=== PATIENT | male | born 1955 | race Caucasian/White ===

== ENCOUNTER 2018-09-03 02:15 | Inpatient (IN) ==
[2018-09-03] MEDS ORDERED: cefTRIAXone SODIUM 2,000 MG in DEXTROSE 5% 50 ML IV STA (02:52)
[2018-09-03] MEDS ORDERED: ONDANSETRON INJ 2 MG/ML 2 ML VIAL IV STA (02:52)
[2018-09-03] MEDS ORDERED: SODIUM CHLORIDE 0.9% 1000ML 1,000 ML IV ONE ×2 (02:52→04:21)
--- NOTE | 2018-09-03 03:04 | Emergency Department Note ---
ED Provider Note Name: Jayant Carvajal Age: 63M Arrives Via: POV Informant: Pt, CC: Blood stream infection HPI: 63 male arrives for evaluation of positive blood cultures. Patient seen earlier yesterday and diagnosed with UTI/Prostatitis, started on abx and discharged home. Notes feeling well initially on getting home but as day went on symptoms worsening. Took evening abx dosage. Admits minimal oral intake today. States urinary burning/frequency, fatigue, weakness, lack of appetite, nausea, and lightheaded. Worse with standing/exertion. Better with rest and relaxing. He has had no headache, neck pain, sob, cp, back pain, flank pain, leg swelling, rashes, syncope, vision changes nor other symptoms. Denies significant history of infections. No family history of infection issues he remembers. Previous with removal of appendix, tonsils and gallbladder. Denies current abdominal pain. Other than abx no other medications prior to arrival. This evening he was notified of positive blood cultures and advised to return to ED for further evaluation. ROS: See above HPI for pertinent positives & negatives. A total of 10 systems reviewed and were otherwise negative. Past Medical History: HTN, GERD, PE, Depression Past Surgical History: Cholecystecomy, Appendectomy, Tonsillectomy Family History: Non-Contributory Social History: Lives with , non-smoker, retired, farms Home Medications: Lisinopril, Zoloft, Lansoprazole Allergies None Physical: Vitals: BP 131/65, P 80, R 23, T 36.8, O2 93% RA Exam: GENERAL: Patient is tired appearing and in mild distress. EYES: No scleral icterus, unremarkable pupils. ENT: Mucous membranes moist, no nasal congestion. NECK: No masses appreciated, no meningismus, trachea is midline. RESPIRATORY: No dyspnea. Clear to auscultation and equal bilaterally. No wheeze, no rhonchi. CARDIOVASCULAR: Regular rate and rhythm. No murmurs, rubs, gallops appreciated. GASTROINTESTINAL: Abdomen soft, non-tender, no peritonitis. Bowel sounds positive. No masses appreciated. BACK: No midline tenderness, no CVA tenderness EXTREMITIES: Normal motion all extremities, no cyanosis, no edema. NEUROLOGIC: Alert and oriented, no acute motor or sensory deficits, no focal weakness, cranial nerves grossly intact. SKIN: No rash, no jaundice, no diaphoresis. ED Course: Prior Medical Record, Triage/Nursing Notes, Medications, Allergies reviewed by Me Vital Signs: reviewed and remarkable for wnl Labs: Reviewed and remarkable for elevated WBC, elevated Lactate, elevated bili, elevated INR Interventions: Saline Lock, NSS bolus 2L IV, Rocephin 2gm IV Imaging: X ray results are stated below per my interpretation: Chest: 1 view: No infiltrate, no effusion, normal cardiac border. Circular mass/granuloma left upper chest. No previous for comparison. EKG: Per My Interpretation: Indication Sepsis: NSR 94 bpm qtc 442, No ectopy no ischemia. Similar to EKG Oct 2017 Consults: Dr Marylou Cruz Hospitalist will bring in for further management Reassessments: Feeling much improved on repeat evaluation. Blood pressure: Normal. No Referral necessary Disposition: Hospitalization Differentials: Sepsis, Prostatitis, UTI, Pyelonephritis, Bacteremia, Endocarditis, PNA, Electrolyte imbalance amongst other pathologies. Medical Decision Making: Pleasant 63 yr old male arrives for evaluation of positive blood cultures done earlier in the day. UTI vs Prostatitis by work-up earlier, though with normal UA here I suspect that primary issue is prostate infection. Already with Cipro on board this evening, thus given another dose IV Rocephin 2 gm. With elevated Lactate I opted to give 2 boluses IV fluids. Not in septic shock. He has elevated WBC and Lactate indicating sepsis however. With concern acute prostatitis and already with sepsis will avoid rectal exam at this time. LFTs are a bit bumped including INR. Suspect this is secondary to the Fatty Liver he already knows about from previous evaluations. He does not appear to be in DIC at this time. I have asked hospitalist to evaluate further for management of patient. Impression: Bacteremia due to Gram-Negative bacteria Sepsis Fatty Liver Acute Prostatitis Sin Batista MD Impression & Plan Bacteremia due to Gram-negative bacteria, Sepsis, Fatty liver, Acute prostatitis Past Med/Surg History Social History Preferred Language: Urdu marital status: Current Living Situation: Spouse current occupational status: retired Feels Safe at Home: Yes Smoking Status: Former smoker Results & Data Vital Signs Vital Signs - 24 hr 09/03/18 02:25 09/03/18 03:50 Temperature 36.8 C Temperature Source Oral Pulse Rate [Finger] 94 H 80 Respiratory Rate 20 23 Respiratory Effort / Characteristics Non-Labored Spontaneous Respiratory Depth Normal Blood Pressure [Right Arm] 143/73 H 131/65 Blood Pressure Mean [Right Arm] 96 87 Blood Pressure Position [Right Arm] Lying Pulse Oximetry 93 Oxygen Delivery Method Room Air Laboratory Data Result diagrams: 09/03/18 03:38 09/03/18 03:38 Lab Results 09/03/18 09/03/18 09/03/18 Range/Units 03:38 03:38 03:38 WBC 16.59 H (4.8-10.8) K/uL RBC 4.44 L (4.7-6.1) M/uL Hgb 14.1 (14.0-18.0) g/dL Hct 41.0 L (42-52) % MCV 92.3 (80-100) fL MCH 31.8 (25-34) pg MCHC 34.4 (32-36) g/dL RDW Std Deviation 43.5 (36.4-46.3) fL RDW Coeff of Vicki 12.9 (11.5-14.5) % Plt Count 164 (130-400) K/uL MPV 9.7 (7.4-10.4) fL Immature Gran % (Auto) 0.3 % Neut % (Auto) 79.2 % Lymph % (Auto) 9.3 % Dodge % (Auto) 10.9 % Eos % (Auto) 0.1 % Baso % (Auto) 0.2 % Immature Gran # (Auto) 0.05 H (0.00-0.02) K/uL Neut # (Auto) 13.13 H (1.4-6.5) K/uL Lymph # (Auto) 1.55 (1.2-3.4) K/uL Dodge # (Auto) 1.81 H (0.11-0.59) K/uL Eos # (Auto) 0.02 (0-0.5) K/uL Baso # (Auto) 0.03 (0-0.2) K/uL PT 13.6 H (9.0-12.0) Seconds INR 1.4 H (0.9-1.1) Sodium 132 L (136-145) mmol/L Potassium 4.3 (3.5-5.1) mmol/L Chloride 101 (98-107) mmol/L Carbon Dioxide 27 (21-32) mmol/L Anion Gap 4.0 (3-11) BUN 10 (7-18) mg/dl Creatinine 1.17 (0.6-1.4) mg/dl Est Cr Clr Drug Dosing Not Reportable Est GFR ( Amer) 75.4 Est GFR (Non-Af Amer) 65.0 BUN/Creatinine Ratio 9.0 L (10-20) Glucose 134 H (70-99) mg/dl Lactate (0.4-2.0) mmol/L Calcium 8.3 L (8.5-10.1) mg/dl Magnesium 1.8 (1.8-2.4) mg/dl Total Bilirubin 3.1 H (0.2-1) mg/dl Direct Bilirubin 0.3 H (0-0.2) mg/dl AST 15 (15-37) U/L ALT 14 (12-78) U/L Alkaline Phosphatase 68 (45-117) U/L Troponin I < 0.015 (0-0.045) ng/ml C-Reactive Protein 18.90 H (0-0.29) mg/dl Total Protein 6.6 (6.4-8.2) gm/dl Albumin 3.1 L (3.4-5.0) gm/dl Urine Color Urine Appearance (Clear) Urine pH (4.5-7.5) Ur Specific [place] (1.000-1.030) Urine Protein (Negative) Urine Glucose (UA) (Negative) Urine Ketones (Negative) Urine Blood (Negative) Urine Nitrite (Negative) Urine Bilirubin (Negative) Urine Urobilinogen (Negative) Ur Leukocyte Esterase (Negative) Urine WBC (Auto) (0-5) /hpf Urine RBC (Auto) (0-4) /hpf U Hyaline Cast (Auto) (0-5) /lpf U Epithel Cells (Auto) (0-5) /lpf Urine Bacteria (Auto) (Negative) 09/03/18 09/03/18 Range/Units 03:38 04:00 WBC (4.8-10.8) K/uL RBC (4.7-6.1) M/uL Hgb (14.0-18.0) g/dL Hct (42-52) % MCV (80-100) fL MCH (25-34) pg MCHC (32-36) g/dL RDW Std Deviation (36.4-46.3) fL RDW Coeff of Vicki (11.5-14.5) % Plt Count (130-400) K/uL MPV (7.4-10.4) fL Immature Gran % (Auto) % Neut % (Auto) % Lymph % (Auto) % Dodge % (Auto) % Eos % (Auto) % Baso % (Auto) % Immature Gran # (Auto) (0.00-0.02) K/uL Neut # (Auto) (1.4-6.5) K/uL Lymph # (Auto) (1.2-3.4) K/uL Dodge # (Auto) (0.11-0.59) K/uL Eos # (Auto) (0-0.5) K/uL Baso # (Auto) (0-0.2) K/uL PT (9.0-12.0) Seconds INR (0.9-1.1) Sodium (136-145) mmol/L Potassium (3.5-5.1) mmol/L Chloride (98-107) mmol/L Carbon Dioxide (21-32) mmol/L Anion Gap (3-11) BUN (7-18) mg/dl Creatinine (0.6-1.4) mg/dl Est Cr Clr Drug Dosing Est GFR ( Amer) Est GFR (Non-Af Amer) BUN/Creatinine Ratio (10-20) Glucose (70-99) mg/dl Lactate 2.1 H* (0.4-2.0) mmol/L Calcium (8.5-10.1) mg/dl Magnesium (1.8-2.4) mg/dl Total Bilirubin (0.2-1) mg/dl Direct Bilirubin (0-0.2) mg/dl AST (15-37) U/L ALT (12-78) U/L Alkaline Phosphatase (45-117) U/L Troponin I (0-0.045) ng/ml C-Reactive Protein (0-0.29) mg/dl Total Protein (6.4-8.2) gm/dl Albumin (3.4-5.0) gm/dl Urine Color Hitchcock Urine Appearance Clear (Clear) Urine pH 5.0 (4.5-7.5) Ur Specific [place] 1.018 (1.000-1.030) Urine Protein Negative (Negative) Urine Glucose (UA) Negative (Negative) Urine Ketones Negative (Negative) Urine Blood Negative (Negative) Urine Nitrite Negative (Negative) Urine Bilirubin Negative (Negative) Urine Urobilinogen Negative (Negative) Ur Leukocyte Esterase Trace H (Negative) Urine WBC (Auto) 10-30 H (0-5) /hpf Urine RBC (Auto) 0-4 (0-4) /hpf U Hyaline Cast (Auto) 1-5 (0-5) /lpf U Epithel Cells (Auto) 10-20 H (0-5) /lpf Urine Bacteria (Auto) Negative (Negative) Administered Medications Sodium Chloride (Nss 1000ml) 1,000 mls @ 999 mls/hr IV .Q1H1M ONE Stop: 09/03/18 05:21 Last Admin: 09/03/18 04:36 Dose: 999 mls/hr Documented by: [id number] Discontinued Medications Ceftriaxone Sodium 2,000 mg/ (Dextrose) 70 mls @ 100 mls/hr IV NOW STA Stop: 09/03/18 03:33 Last Infusion: 09/03/18 04:37 Dose: 0 mls/hr Documented by: [id number] Admin: 09/03/18 03:45 Dose: 100 mls/hr Documented by: [id number] Sodium Chloride (Nss 1000ml) 1,000 mls @ 999 mls/hr IV .Q1H1M ONE Stop: 09/03/18 03:52 Last Infusion: 09/03/18 04:37 Dose: 0 mls/hr Documented by: [id number] Admin: 09/03/18 03:45 Dose: 999 mls/hr Documented by: [id number] Ondansetron HCl (Zofran) 4 mg IV NOW STA Stop: 09/03/18 02:53 Last Admin: 09/03/18 03:45 Dose: 4 mg Documented by: [id number] Discharge Plan Visit Data Chief Complaint: Referred by Doctor Stated Complaint: [facility] Provider: Sin Batista Discharge Problem: Bacteremia due to Gram-negative bacteria, Sepsis, Fatty liver, Acute prostatitis Forms Stand Alone Forms: Call Back Authorization, [facility] Prescriptions Prescriptions: No Action lisinopril 10 mg Tablet 10 mg PO QAM RF: 0 lansoprazole 15 mg Capsule,Delayed Release(Dr/Ec) 15 mg PO QAM RF: 0 sertraline [Zoloft] 25 mg Tablet 25 mg PO QAM RF: 0 ciprofloxacin HCl [Cipro] 500 mg tablet 500 mg PO Q12H Qty: 28 RF: 0 Referrals Referrals: Clifton Casas MD [Primary Care Provider] - Discharge Problem: Sepsis Qualifiers: Sepsis type: sepsis due to unspecified organism Qualified Code(s): A41.9 - Sepsis, unspecified organism
[2018-09-03 03:46] LABS: Basophils # (auto) 0.03 K/uL (0-0.2); Basophils % (auto) 0.2 %; Eosinophils # (auto) 0.02 K/uL (0-0.5); Eosinophils % (auto) 0.1 %; Hemoglobin 14.1 g/dL (14.0-18.0); Immature Granulocytes # (auto) 0.05 K/uL (0.00-0.02); Immature Granulocytes % (auto) 0.3 %; Lymphocytes # (auto) 1.55 K/uL (1.2-3.4); Lymphocytes % (auto) 9.3 %; Mean Corpuscular Hgb Conc 34.4 g/dL (32-36); Mean Corpuscular Volume 92.3 fL (80-100); Mean Platelet Volume 9.7 fL (7.4-10.4); Monocytes # (auto) 1.81 K/uL (0.11-0.59); Monocytes % (auto) 10.9 %; Neutrophils # (auto) 13.13 K/uL (1.4-6.5); Neutrophils % (auto) 79.2 %; Platelet Count 164 K/uL (130-400); RDW Coefficient of Variation 12.9 % (11.5-14.5); RDW Standard Deviation 43.5 fL (36.4-46.3); Red Blood Count 4.44 M/uL (4.7-6.1); White Blood Count 16.59 K/uL (4.8-10.8)
[2018-09-03 03:55] LABS: INR 1.4 (0.9-1.1); Prothrombin Time 13.6 Seconds (9.0-12.0)
[2018-09-03 04:05] LABS: Alanine Aminotransferase 14 U/L (12-78); Albumin Level 3.1 gm/dl (3.4-5.0); Aspartate Aminotransferase 15 U/L (15-37); Bilirubin Direct 0.3 mg/dl (0-0.2); Blood Urea Nitrogen 10 mg/dl (7-18); Calcium 8.3 mg/dl (8.5-10.1); Carbon Dioxide 27 mmol/L (21-32); Chloride 101 mmol/L (98-107); Est GFR (African American) 75.4; Glucose 134 mg/dl (70-99); Magnesium 1.8 mg/dl (1.8-2.4); Potassium 4.3 mmol/L (3.5-5.1); Sodium 132 mmol/L (136-145)
[2018-09-03 04:08] LABS: Alkaline Phosphatase 68 U/L (45-117); Bilirubin,Total 3.1 mg/dl (0.2-1); Total Protein 6.6 gm/dl (6.4-8.2); Troponin I < 0.015 ng/ml (0-0.045)
[2018-09-03 04:11] LABS: Appearance Urine Clear (Clear); Bacteria Urine Automated Negative (Negative); Bilirubin Urine Negative (Negative); Blood Urine Negative (Negative); Color Urine Orange; Glucose Urine UA Negative (Negative); Ketones Urine Negative (Negative); Leukocyte Esterase Urine Trace (Negative); Nitrite Urine Negative (Negative); Protein Urine Negative (Negative); RBC Urine Automated 0-4 /hpf (0-4); Specific Gravity Urine 1.018 (1.000-1.030); Urobilinogen Urine Negative (Negative)
[2018-09-03] MEDS ORDERED: ONDANSETRON INJ 2 MG/ML 2 ML VIAL IV PRN (05:42)
[2018-09-03] MEDS ORDERED: PIPERACILL/TAZOBAC CONSULT ACTIVE PRN (05:42)
[2018-09-03] MEDS ORDERED: ACETAMINOPHEN 325 MG TAB PO PRN (05:42)
[2018-09-03] MEDS ORDERED: NITROGLYCERIN SL 0.4 MG/TAB TAB SL PRN (05:42)
[2018-09-03] MEDS: SODIUM CHLORIDE 0.9% 1000ML 1,000 ML IV SCH ×3 (06:07→21:59)
[2018-09-03] MEDS ORDERED: PATIENT'S HEIGHT AND/OR WEIGHT NEEDED SCH (06:15)
--- NOTE | 2018-09-03 06:51 | XRay Report ---
XR chest 1V portable CLINICAL HISTORY: Sepsis COMPARISON STUDY: October 31, 2015 FINDINGS: The cardiac and mediastinal contours are normal. There is no evidence of focal pulmonary co nsolidation. There is no evidence of failure. No pleural effusions are visualized.[There is a 5 mm no dule at the right lung base, likely postinflammatory. IMPRESSION: No active disease in the chest. Electronically signed by: Sergio Wright M.D. 09/03/2018 6:50 AM
[2018-09-03] MEDS ORDERED: PIPERACILLIN/TAZOBACTAM 4.5 GM in DEXTROSE 5% 100 ML IV SCH (08:00)
--- NOTE | 2018-09-03 08:03 | History and Physical Report ---
DATE OF ADMISSION: 09/03/2018 CHIEF COMPLAINT: UTI, bacteremia. HISTORY OF PRESENT ILLNESS: This is a 63-year-old male with past medical history significant for morbid obesity, hyperlipidemia, hypertension, GERD, anxiety, who presented to the ER yesterday with burning micturition, some nausea, and found to have a temp spike in the ER, elevated white count and UA was positive and he was given Rocephin . CAT scan was showing possible cystitis versus prostatitis. Discharged on Cipro. The patient did okay at home, but two of the blood tests came back as positive for gram-positive cocci and was called for admission. The patient is currently hemodynamically stable, afebrile. White count is still 16.5. Point of care lactic acid was 2.1. INR was 1.4 and total bilirubin 3.1. CRP was 18.9, so we were called for admission. The patient says urinary symptoms have improved now. Patient is feeling fine. Denies any chest pain, no shortness of breath. He earlier felt nausea but it is improved. He says symptoms are since Friday and his appetite is down since Friday. Denies any headache, no blurred visions, no earache, no runny nose, no sore throat, no difficulty swallowing. No abdominal pain. Normal bowel movements. No swelling in the legs. Lives with his . Currently resting comfortably and hemodynamically stable. ALLERGIES: No known drug allergies. PAST MEDICAL HISTORY: As mentioned above. PAST SURGICAL HISTORY: Colonoscopy, EGD with endoscopic ultrasound, cholecystectomy. MEDICATIONS: The patient is currently on Prevacid 15 mg p.o. daily, Zoloft 25 mg p.o. daily, lisinopril 10 mg p.o. daily. FAMILY HISTORY: Significant for father had diabetes, mother has hypertension. SOCIAL HISTORY: . No smoking, no alcohol, no drug use. REVIEW OF SYMPTOMS: As per HPI. Rest of the review of systems negative. PHYSICAL EXAMINATION: GENERAL: The patient is alert and oriented, not in acute distress. VITAL SIGNS: Temperature 36.8, pulse 80, respiratory rate 23, blood pressure 131/65, oxygen 93% on room air. HEENT: No pallor, no icterus. Pupils equal, round, and reactive to light. NECK: No JVD, no neck masses, no carotid bruits. CARDIOVASCULAR: S1, S2 heard, regular rate and rhythm, no murmur, no gallop. RESPIRATORY SYSTEM: Normal AP diameter. No accessory muscle use. No wheezing, no crackles. ABDOMEN: Soft, bowel sounds present. Nontender. No distention. CENTRAL NERVOUS SYSTEM: Cranial nerves II-XII grossly intact. Nonfocal. EXTREMITIES: No edema, no erythema. LABORATORY DATA: WBC 16.5, hemoglobin 14.1, hematocrit 41, platelets 164. PT 13.6, INR 1.4. Sodium 132, potassium 4.3, chloride 101, bicarbonate 27, BUN 10, creatinine 1.17, serum glucose 134. Lactate 2.1, calcium 8.3, magnesium 1.8, total bilirubin 3.1, direct bilirubin 0.3, AST 15, ALT 14, alkaline phosphatase 68, troponin I less than 0.015. C-reactive protein 18.9, leukocyte esterase trace. EKG: Normal sinus rhythm at a rate of 94. No significant change from previous EKG. ASSESSMENT AND PLAN: This is a 63-year-old male who presents with possible cystitis or prostatitis, and bacteremia. 1. Bacteremia. CAT scan done early yesterday shows possible cystitis or prostatitis. Initially had fever spikes as well as leukocytosis. Both the blood cultures came back with gram-negative bacteremia. He was treated with Rocephin. Symptoms seem to be improving. Until cultures come back, we will place him on IV Zosyn and IV fluids. Since there is a question of prostatitis, we will consult urology for further recommendation. Lactate is 2.1. We will follow repeat lactic acid. 2. Elevated bilirubin and elevated INR, possibly from infection. AST and ALT are normal. Could be Gilbert syndrome. We will follow the repeat labs, liver ultrasound. 3. Hyponatremia, sodium of 132. Getting fluids. Follow the repeat labs. 4. Hypertension, continue his lisinopril withholding parameters. 5. Gastroesophageal reflux disease, continue lansoprazole. 6. History of anxiety and depression, continue Zoloft. 7. History of pulmonary embolism in the past, was treated with Eliquis for 1 year, followed with hematology/oncology. 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 Currently not on any anticoagulation. 8. Deep venous thrombosis prophylaxis, we will place him on sequential compression devices for now. 9. Disposition: Admit to med/surg tele. Level 1 full code. Expect to discharge home and follow with his family doctor. GABBY
--- NOTE | 2018-09-03 08:06 | Ultrasound Report ---
US liver CLINICAL HISTORY: 63 years-old Male presenting with elevated bilirubin. TECHNIQUE: Real-time grayscale and limited color Doppler ultrasound imaging of the abdomen limited to the right upper quadrant was performed. COMPARISON: 09/02/2018. FINDINGS: Pancreas: Visualized portions of the pancreatic head and body normal. Liver: Markedly hyperechogenic parenchyma with obscuration of the right hemidiaphragm, likely indicat ing marked hepatic steatosis. The liver measures 19.4 cm in maximal sagittal dimension. No sonographi c evidence of hepatic mass. Main portal vein patent with normal directional flow. Biliary: No intrahepatic biliary ductal dilatation. Common bile duct measures up to 6 mm in diameter. Gallbladder: No evidence of gallstones, gallbladder wall thickening, gallbladder distention, or peric holecystic fluid or inflammatory change. Right kidney: Normal in appearance without evidence of hydronephrosis. Ascites: None. Other: None. IMPRESSION: 1. No cholelithiasis or biliary ductal dilatation. 2. Hepatic steatosis. Correlate with liver function tests to exclude steatohepatitis as a cause for abdominal pain. Electronically signed by: Gurvinder Dempsey M.D. 09/03/2018 8:05 AM
[2018-09-03] MEDS: LISINOPRIL 10 MG TAB PO SCH (08:12)
[2018-09-03] MEDS: PANTOprazole 40 MG TAB PO SCH (08:12)
[2018-09-03] MEDS: SERTRALINE HCL 50 MG TABLET PO SCH (08:13)
--- NOTE | 2018-09-03 08:25 | Urology Consultation ---
Date of Consultation September 03, 2018 Assessment & Plan (1) Acute prostatitis: 63yo M with complicated UTI/ acute prostatitis with bacteremia PSA 11. 2 today, further confirms diagnosis of acute prostatitis. CT - no evidence of prostatic abscess formation. NO indication for surgical intervention at this time. Will add tamsulosin and finasteride to regimen. Warned against side effects. Monitor for lightheadedness/dizziness Continue Zosyn Await final cultures to guide antibiotic recommendations - will need 14day course for prostatitis/bacteremia Thank you for allowing us to participate in the acute care of Mr. Carvajal. Will continue to follow with primary service. History of Present Illness Reason for Consultation: complicated UTI/ prostatitis Requesting Physician: Dr. Luis Attending Physician: Jimmy Luis, History of Present Illness A very pleasant 63yo M with GERD, HTN in general state of health until Friday AM experienced dysuria, followed by fevers, urgency/frequency q1h that evening. He presented to ED, diagnosed with prostatitis, eRX for cipro x14d That evening he received call that his prelim blood cultures were positive, prompted admission. Febrile at 38.8C on admission, with leukocytosis, slightly elevated lactic acidosis, CRP also elevated. Improved urinary pattern since admission. Dysuria has almost completely resolved, frquency now q2-3 hours, some urgency. Denies pelvic or suprapubic pain. States he's "really feeling alot better". CT does show enlarged prostate, medial lobe hypertrophy - mild periprostatic stranding. Prelim UC&S and BCX growing gram neg bacilli. Pt is currently on zosyn IV. Never previously evaluated by urologist for any other reason. Prior to this, PSA and DREs routinely checked by PCP, Dr. Casas ([facility]) with no issues. Baseline voiding pattern as follows: nocturia 0-1 strong stream no post void dribbling or intermittency PFX - Father with CAP- treated with radiation, believes he was diagnosed around age 65. Younger brother, no issues. Allergies Allergy/AdvReac Type Severity Reaction Status Date / Time No Known Allergies Allergy Verified 09/03/18 03:51 Home Medications Home Medications Medication Instructions Recorded Confirmed Type ciprofloxacin HCl [Cipro] 500 mg PO Q12H #28 tab 09/02/18 09/03/18 Rx lansoprazole 15 mg PO QAM 09/02/18 09/03/18 History lisinopril 10 mg PO QAM 09/02/18 09/03/18 History sertraline [Zoloft] 25 mg PO QAM 09/02/18 09/03/18 History Patient History Medical History HTN (hypertension) (Chronic) GERD (gastroesophageal reflux disease) (Chronic) Bilateral pulmonary embolism (Acute) Surgical History S/P cholecystectomy (Chronic) History of appendectomy (Chronic) Hx of tonsillectomy (Chronic) Family History Father Prostate cancer Social History Preferred Language: Namibian Communication Ability: Effective Testing And Regulating Chief Required: No Beliefs That Will Affect Care: None marital status: Current Living Situation: Spouse and Parent current occupational status: retired Other Information That Helps Us Care for You: No Feels Safe at Home: Yes Safety Concerns: Feels Safe At This Time Smoking Status: Never smoker Do You Dip or Chew Tobacco: No Hx Alcohol Use: No Hx Substance Use: No Review of Systems Constitutional: no fever, no chills and no malaise Eyes: + corrective lenses; no blind spots and no diplopia Ear, Nose, Mouth, Throat: no ear pain and no tinnitus Respiratory: no cough and no hemoptysis Cardiovascular: no chest pain and no dyspnea at rest Gastrointestinal: no abdominal pain, no nausea and no vomiting Genitourinary: + dysuria (very mild), + nocturia and + urinary urgency; no difficulty urinating, no urinary frequency, no urinary hesitancy, no hematuria and no flank pain Musculoskeletal: no back pain and no swelling Integumentary: no acne and no lesions Neurologic: no falls and no paralysis Psychiatric: no hopelessness and no anhedonia Endocrine: no fatigue and no polydipsia Hematologic / Lymphatic: no easy bleeding and no coagulopathy Allergy / Immunological: no GI upset with certain foods and no lip swelling Physical Exam Constitutional: + not well nourished and no acute distress Eyes: no eyelid abnormality ENMT: Ears: no hearing impairment and no TM abnormality Neck: trachea midline Respiratory: no respiratory distress and does not use accessory muscles Cardiovascular: Vessels: no JVD Chest (Breasts): Breast: + abnormal inspection of breast Gastrointestinal (Abdomen): Inspection/Auscultation: abdomen not distended and no abdominal edema Percussion/Palpation: abdomen soft; abdomen nontender Musculoskeletal: Head/Neck/Chest: normocephalic, head atraumatic and neck supple Skin: no rashes and no ulcers Neurologic: CN's II-XI intact bilaterally and awake; not confused and not obtunded Psychiatric: Orientation: alert and oriented x 3 Eye Contact: good eye contact Genitourinary: no CVA tenderness Lymphatic: no lymphedema Results & Data Vital Signs (Past 12 Hours) Vital Signs Temp Pulse Pulse Resp BP BP Pulse Ox 09/03/18 07:00 37.0 C 78 80 20 142/70 H 91 09/03/18 06:15 78 09/03/18 05:30 36.9 C 82 18 114/72 92 09/03/18 05:26 71 20 126/73 94 09/03/18 03:50 80 23 131/65 93 09/03/18 02:25 36.8 C 94 H 20 143/73 H
[2018-09-03 08:51] LABS: Basophils # (auto) 0.04 K/uL (0-0.2); Basophils % (auto) 0.3 %; Eosinophils # (auto) 0.03 K/uL (0-0.5); Eosinophils % (auto) 0.2 %; Hematocrit (blood only) 40.8 % (42-52); Hemoglobin 13.6 g/dL (14.0-18.0); Immature Granulocytes # (auto) 0.03 K/uL (0.00-0.02); Immature Granulocytes % (auto) 0.2 %; Lymphocytes % (auto) 12.2 %; Mean Corpuscular Hgb Conc 33.3 g/dL (32-36); Mean Corpuscular Volume 93.2 fL (80-100); Monocytes # (auto) 1.43 K/uL (0.11-0.59); Monocytes % (auto) 10.3 %; Neutrophils # (auto) 10.71 K/uL (1.4-6.5); Neutrophils % (auto) 76.8 %; Platelet Count 161 K/uL (130-400); RDW Coefficient of Variation 13.1 % (11.5-14.5); RDW Standard Deviation 44.8 fL (36.4-46.3); Red Blood Count 4.38 M/uL (4.7-6.1); White Blood Count 13.94 K/uL (4.8-10.8)
[2018-09-03 09:24] LABS: Albumin Level 2.9 gm/dl (3.4-5.0); BUN Creatinine Ratio 9.9 (10-20); Bilirubin Direct 0.4 mg/dl (0-0.2); Calcium 8.5 mg/dl (8.5-10.1); Creatinine Clr Calc Pharmacy 93.2 ml/min; Est GFR (African American) 81.2; Est GFR (Non-African American) 70.1; Magnesium 1.9 mg/dl (1.8-2.4); Potassium 4.3 mmol/L (3.5-5.1)
[2018-09-03 09:37] LABS: Total Protein 6.3 gm/dl (6.4-8.2)
--- NOTE | 2018-09-03 11:30 | Hospitalist Progress Note ---
Date of Service September 03, 2018 Assessment & Plan (1) Sepsis: (2) Bacteremia due to Gram-negative bacteria: (3) Acute prostatitis: (4) Leukocytosis: (5) HTN (hypertension): (6) GERD (gastroesophageal reflux disease): BANDAR Lovell on Case, Monitor WBCs DC when afeb, WBCs back to normal, likely dc 1-2 days ROS-No Headache, No Visual Changes, No Nausea, No Vomiting, No Fever, No Chills, No Neck Pain or Stiffness, No Chest Pain, No Palpitations, No SOB, No ANDINO, No Cough, No Sputum, No Wheezing, No Abdominal Pain, No Diarrhea, No Hematemesis, No Hemoptysis, No Unexpected Weight Loss, No Flank pain, No Melena, No Hematochezia, +Frequency, +Urgency, +Burning, No Hematuria, No Rashes, No Diaphoresis. Appetite is Normal Physical Exam Gen-AAO x 3, NAD, Febrile yesterday Head-NCAT, EOMI, PERRLA, Anicteric Sclera, No Posterior Pharyngeal Erythema Neck-Supple, No JVD, No Thyromegaly, No Masses, No LAD, No Bruits Lungs-Clear to Auscultation Bilaterally, No Rales, No Rhonchi, No Wheezing, No Crepitus Chest-No S4, +S1, +S2, No S3, No Murmurs, No Rubs, No Gallops, No Ectopy Abdomen-Soft, Bowel Sounds Present, Non Tender, Non Distended, No Hepatomegaly, No Splenomegaly, No Palpable Masses, No Rebound, No Rigidity, No Guarding Musculoskeletal-Full Range of Motion Bilaterally, No CVAT Extremities-No Cyanosis, No Clubbing, No Edema Nuero-Cranial Nerves II-XII grossly intact, Motor WNL, DTRs WNL, Strength WNL, Non Focal Psych-Normal Mood Results & Data Vital Signs (Past 12 Hours) Vital Signs Temp Pulse Pulse Resp BP BP Pulse Ox 09/03/18 07:00 37.0 C 78 80 20 142/70 H 91 09/03/18 06:15 78 09/03/18 05:30 36.9 C 82 18 114/72 92 09/03/18 05:26 71 20 126/73 94 09/03/18 03:50 80 23 131/65 93 09/03/18 02:25 36.8 C 94 H 20 143/73 H Allergies No Known Allergies Allergy (Verified 09/03/18 03:51) Height/Weight/Isolation Height 5 ft 9 in Weight 140.1 kg Chemistry 09/03/18 09/03/18 03:38 08:40 Sodium 132 L 138 Potassium 4.3 4.3 Chloride 101 103 Carbon Dioxide 27 29 Anion Gap 4.0 6.0 BUN 10 11 Creatinine 1.17 1.10 Glucose 134 H 145 H Urinalysis 09/03/18 04:00 Urine Color [place] Urine Appearance Clear Urine pH 5.0 Ur Specific [place] 1.018 Urine Protein Negative Urine Glucose (UA) Negative Urine Ketones Negative Urine Blood Negative Urine Nitrite Negative Urine Bilirubin Negative Microbiology 09/03/18 03:24 Blood Aerobic Blood Culture - Pending 09/03/18 03:24 Blood Anaerobic Blood Culture - Pending 09/03/18 03:24 Blood Aerobic Blood Culture - Pending 09/03/18 03:24 Blood Anaerobic Blood Culture - Pending (1) Sepsis Sepsis type: sepsis due to unspecified organism Qualified Code(s): A41.9 - Sepsis, unspecified organism
[2018-09-03] MEDS: PIPERACILLIN/TAZOBACTAM 4.5 GM/120 ML BAG IV SCH ×2 (12:08→21:00)
[2018-09-03] MEDS: TAMSULOSIN HCL 0.4 MG CAP PO SCH (20:57)
[2018-09-04] MEDS: PIPERACILLIN/TAZOBACTAM 4.5 GM/120 ML BAG IV SCH (04:55)
[2018-09-04] MEDS: SODIUM CHLORIDE 0.9% 1000ML 1,000 ML IV SCH ×3 (04:57→22:21)
[2018-09-04 05:40] LABS: Basophils # (auto) 0.02 K/uL (0-0.2); Basophils % (auto) 0.2 %; Eosinophils # (auto) 0.08 K/uL (0-0.5); Eosinophils % (auto) 0.8 %; Hematocrit (blood only) 37.8 % (42-52); Hemoglobin 12.4 g/dL (14.0-18.0); Immature Granulocytes # (auto) 0.02 K/uL (0.00-0.02); Immature Granulocytes % (auto) 0.2 %; Lymphocytes # (auto) 1.18 K/uL (1.2-3.4); Lymphocytes % (auto) 11.4 %; Mean Corpuscular Hgb Conc 32.8 g/dL (32-36); Mean Corpuscular Volume 94.3 fL (80-100); Mean Platelet Volume 9.8 fL (7.4-10.4); Monocytes # (auto) 0.94 K/uL (0.11-0.59); Monocytes % (auto) 9.1 %; Neutrophils # (auto) 8.12 K/uL (1.4-6.5); Neutrophils % (auto) 78.3 %; Platelet Count 149 K/uL (130-400); RDW Coefficient of Variation 13.3 % (11.5-14.5); RDW Standard Deviation 46.3 fL (36.4-46.3); Red Blood Count 4.01 M/uL (4.7-6.1); White Blood Count 10.36 K/uL (4.8-10.8)
[2018-09-04 05:53] LABS: INR 1.2 (0.9-1.1); Prothrombin Time 11.8 Seconds (9.0-12.0)
[2018-09-04 06:11] LABS: Albumin Level 2.7 gm/dl (3.4-5.0); BUN Creatinine Ratio 10.2 (10-20); Bilirubin Direct 0.3 mg/dl (0-0.2); Calcium 7.7 mg/dl (8.5-10.1); Creatinine Clr Calc Pharmacy 82.1 ml/min; Est GFR (African American) 69.6; Potassium 4.4 mmol/L (3.5-5.1)
[2018-09-04 06:13] LABS: Albumin Globulin Ratio 0.8 (0.9-2); Bilirubin,Total 1.1 mg/dl (0.2-1); Globulin 3.3 gm/dl (2.5-4.0)
[2018-09-04] MEDS: LISINOPRIL 10 MG TAB PO SCH (08:18)
[2018-09-04] MEDS: PANTOprazole 40 MG TAB PO SCH (08:18)
[2018-09-04] MEDS: FINASTERIDE 5 MG TAB PO SCH (08:18)
[2018-09-04] MEDS: SERTRALINE HCL 50 MG TABLET PO SCH (08:19)
--- NOTE | 2018-09-04 08:56 | Hospitalist Progress Note ---
Date of Service September 04, 2018 Assessment & Plan (1) Sepsis: (2) Bacteremia due to Gram-negative bacteria: (3) Acute prostatitis: (4) Leukocytosis: (5) HTN (hypertension): (6) GERD (gastroesophageal reflux disease): DC Zosyn start Rocephin, Pansensitive Enterobacter, on Case, WBCs now normal, Repeat Blood cultures neg for 24 hours DC when afeb and if blood culture neg tomorrow, likely 09/06 Labs checked ROS-No Headache, No Visual Changes, No Nausea, No Vomiting, No Fever, No Chills, No Neck Pain or Stiffness, No Chest Pain, No Palpitations, No SOB, No ANDINO, No Cough, No Sputum, No Wheezing, No Abdominal Pain, No Diarrhea, No Hematemesis, No Hemoptysis, No Unexpected Weight Loss, No Flank pain, No Melena, No Hematochezia, +Frequency, +Urgency, +Burning, No Hematuria, No Rashes, No Diaphoresis. Appetite is Normal Physical Exam Gen-AAO x 3, NAD, Febrile yesterday Head-NCAT, EOMI, PERRLA, Anicteric Sclera, No Posterior Pharyngeal Erythema Neck-Supple, No JVD, No Thyromegaly, No Masses, No LAD, No Bruits Lungs-Clear to Auscultation Bilaterally, No Rales, No Rhonchi, No Wheezing, No Crepitus Chest-No S4, +S1, +S2, No S3, No Murmurs, No Rubs, No Gallops, No Ectopy Abdomen-Soft, Bowel Sounds Present, Non Tender, Non Distended, No Hepatomegaly, No Splenomegaly, No Palpable Masses, No Rebound, No Rigidity, No Guarding Musculoskeletal-Full Range of Motion Bilaterally, No CVAT Extremities-No Cyanosis, No Clubbing, No Edema Nuero-Cranial Nerves II-XII grossly intact, Motor WNL, DTRs WNL, Strength WNL, Non Focal Psych-Normal Mood Results & Data Vital Signs (Past 12 Hours) Vital Signs Temp Pulse Pulse Resp BP BP Pulse Ox 09/04/18 07:00 37.4 C 81 20 119/68 96 09/04/18 04:24 95 09/04/18 04:04 37.6 C H 93 H 20 102/67 09/03/18 23:38 103 H 09/03/18 23:08 37.5 C 96 H 19 100/58 L 93 (1) Sepsis Sepsis type: sepsis due to unspecified organism Qualified Code(s): A41.9 - Sepsis, unspecified organism
[2018-09-04] MEDS: cefTRIAXone SODIUM 2,000 MG in DEXTROSE 5% 50 ML IV SCH (10:07)
--- NOTE | 2018-09-04 10:36 | Urology Progress Note ---
Date of Service September 04, 2018 Assessment & Plan (1) Acute prostatitis: (2) Bacteremia due to Gram-negative bacteria: 63yo M with acute prostatitis/bacteremia Doing well, progressing very well. Great response to IV abx therapy. No new complaints today. UC&S final - Enterobacter aerogenes, pansensitive except nitrofurantoin. Patient will require 28 day course of antibiotics for acute prostatitis - Ciprofloxacin or Bactrim DS preferred. We will arrange for 3-4 week followup as outpatient to check progress. Please continue tamsulosin and finasteride as outpatient. Will continue to monitor peripherally while inpatient. Thank you for allowing us to participate in acute care of Mr. Carvajal. Subjective 63yo M with acute prostatitis/bacteremia Able to get some rest last evening, feeling well this AM. Still with mild dysuria, otherwise no pain or LUTS. Urine visualized in urinal - clear yellow, no clots/sediment/hematuria. Seems to be tolerating tamsulosin well - no lightheadedness/dizziness. Pt able to ambulate in halls without difficulty No n/v/f/c overnight. Tmax 37.6 this AM. Labs reviewed - leukocytosis improved. Kidney function remains WNL Review of Systems Review of Systems: All systems reviewed & are unremarkable except as noted in HPI & below Physical Exam Physical Exam: A&Ox3 RRR abd soft, nontender no suprapubic pain no LE edema Results & Data Vital Signs (Past 12 Hours) Vital Signs Temp Pulse Pulse Resp BP BP Pulse Ox 09/04/18 10:09 74 09/04/18 07:00 37.4 C 81 20 119/68 96 09/04/18 04:24 95 09/04/18 04:04 37.6 C H 93 H 20 102/67 09/03/18 23:38 103 H 09/03/18 23:08 37.5 C 96 H 19 100/58 L 93 Laboratory Results Laboratory Results - last 48 hr 09/03/18 09/03/18 09/03/18 03:38 03:38 03:38 WBC 16.59 H RBC 4.44 L Hgb 14.1 Hct 41.0 L MCV 92.3 MCH 31.8 MCHC 34.4 RDW Std Deviation 43.5 RDW Coeff of Vicki 12.9 Plt Count 164 MPV 9.7 Immature Gran % (Auto) 0.3 Neut % (Auto) 79.2 Lymph % (Auto) 9.3 Dick[place] % (Auto) 10.9 Eos % (Auto) 0.1 Baso % (Auto) 0.2 Immature Gran # (Auto) 0.05 H Neut # (Auto) 13.13 H Lymph # (Auto) 1.55 Dickens # (Auto) 1.81 H Eos # (Auto) 0.02 Baso # (Auto) 0.03 PT 13.6 H INR 1.4 H Sodium 132 L Potassium 4.3 Chloride 101 Carbon Dioxide 27 Anion Gap 4.0 BUN 10 Creatinine 1.17 Est Cr Clr Drug Dosing Not Reportable Est GFR ( Amer) 75.4 Est GFR (Non-Af Amer) 65.0 BUN/Creatinine Ratio 9.0 L Glucose 134 H Lactate Calcium 8.3 L Magnesium 1.8 Total Bilirubin 3.1 H Direct Bilirubin 0.3 H AST 15 ALT 14 Alkaline Phosphatase 68 Troponin I < 0.015 C-Reactive Protein 18.90 H Total Protein 6.6 Albumin 3.1 L Globulin Albumin/Globulin Ratio Prostate Specific Ag Urine Color Urine Appearance Urine pH Ur Specific [place] Urine Protein Urine Glucose (UA) Urine Ketones Urine Blood Urine Nitrite Urine Bilirubin Urine Urobilinogen Ur Leukocyte Esterase Urine WBC (Auto) Urine RBC (Auto) U Hyaline Cast (Auto) U Epithel Cells (Auto) Urine Bacteria (Auto) Hepatitis C Ab Screen 09/03/18 09/03/18 09/03/18 03:38 04:00 08:40 WBC 13.94 H RBC 4.38 L Hgb 13.6 L Hct 40.8 L MCV 93.2 MCH 31.1 MCHC 33.3 RDW Std Deviation 44.8 RDW Coeff of Vicki 13.1 Plt Count 161 MPV 10.0 Immature Gran % (Auto) 0.2 Neut % (Auto) 76.8 Lymph % (Auto) 12.2 Dickens % (Auto) 10.3 Eos % (Auto) 0.2 Baso % (Auto) 0.3 Immature Gran # (Auto) 0.03 H Neut # (Auto) 10.71 H Lymph # (Auto) 1.70 Dickens # (Auto) 1.43 H Eos # (Auto) 0.03 Baso # (Auto) 0.04 PT INR Sodium Potassium Chloride Carbon Dioxide Anion Gap BUN Creatinine Est Cr Clr Drug Dosing Est GFR ( Amer) Est GFR (Non-Af Amer) BUN/Creatinine Ratio Glucose Lactate 2.1 H* Calcium Magnesium Total Bilirubin Direct Bilirubin AST ALT Alkaline Phosphatase Troponin I C-Reactive Protein Total Protein Albumin Globulin Albumin/Globulin Ratio Prostate Specific Ag Urine Color [place] Urine Appearance Clear Urine pH 5.0 Ur Specific [place] 1.018 Urine Protein Negative Urine Glucose (UA) Negative Urine Ketones Negative Urine Blood Negative Urine Nitrite Negative Urine Bilirubin Negative Urine Urobilinogen Negative Ur Leukocyte Esterase Trace H Urine WBC (Auto) 10-30 H Urine RBC (Auto) 0-4 U Hyaline Cast (Auto) 1-5 U Epithel Cells (Auto) 10-20 H Urine Bacteria (Auto) Negative Hepatitis C Ab Screen 09/03/18 09/03/18 09/03/18 08:40 08:40 08:40 WBC RBC Hgb Hct MCV MCH MCHC RDW Std Deviation RDW Coeff of Vicki Plt Count MPV Immature Gran % (Auto) Neut % (Auto) Lymph % (Auto) Dickens % (Auto) Eos % (Auto) Baso % (Auto) Immature Gran # (Auto) Neut # (Auto) Lymph # (Auto) Dickens # (Auto) Eos # (Auto) Baso # (Auto) PT INR Sodium 138 Potassium 4.3 Chloride 103 Carbon Dioxide 29 Anion Gap 6.0 BUN 11 Creatinine 1.10 Est Cr Clr Drug Dosing 93.2 Est GFR ( Amer) 81.2 Est GFR (Non-Af Amer) 70.1 BUN/Creatinine Ratio 9.9 L Glucose 145 H Lactate 1.7 Calcium 8.5 Magnesium 1.9 Total Bilirubin 2.0 H Direct Bilirubin 0.4 H AST 13 L ALT 12 Alkaline Phosphatase 69 Troponin I C-Reactive Protein Total Protein 6.3 L Albumin 2.9 L Globulin Albumin/Globulin Ratio Prostate Specific Ag Urine Color Urine Appearance Urine pH Ur Specific [place] Urine Protein Urine Glucose (UA) Urine Ketones Urine Blood Urine Nitrite Urine Bilirubin Urine Urobilinogen Ur Leukocyte Esterase Urine WBC (Auto) Urine RBC (Auto) U Hyaline Cast (Auto) U Epithel Cells (Auto) Urine Bacteria (Auto) Hepatitis C Ab Screen Neg 09/03/18 09/04/18 09/04/18 08:40 05:24 05:24 WBC 10.36 RBC 4.01 L Hgb 12.4 L Hct 37.8 L MCV 94.3 MCH 30.9 MCHC 32.8 RDW Std Deviation 46.3 RDW Coeff of Vicki 13.3 Plt Count 149 MPV 9.8 Immature Gran % (Auto) 0.2 Neut % (Auto) 78.3 Lymph % (Auto) 11.4 Dick[place] % (Auto) 9.1 Eos % (Auto) 0.8 Baso % (Auto) 0.2 Immature Gran # (Auto) 0.02 Neut # (Auto) 8.12 H Lymph # (Auto) 1.18 L [place] # (Auto) 0.94 H Eos # (Auto) 0.08 Baso # (Auto) 0.02 PT 11.8 INR 1.2 H Sodium Potassium Chloride Carbon Dioxide Anion Gap BUN Creatinine Est Cr Clr Drug Dosing Est GFR ( Amer) Est GFR (Non-Af Amer) BUN/Creatinine Ratio Glucose Lactate Calcium Magnesium Total Bilirubin Direct Bilirubin AST ALT Alkaline Phosphatase Troponin I C-Reactive Protein Total Protein Albumin Globulin Albumin/Globulin Ratio Prostate Specific Ag 11.200 H Urine Color Urine Appearance Urine pH Ur Specific [place] Urine Protein Urine Glucose (UA) Urine Ketones Urine Blood Urine Nitrite Urine Bilirubin Urine Urobilinogen Ur Leukocyte Esterase Urine WBC (Auto) Urine RBC (Auto) U Hyaline Cast (Auto) U Epithel Cells (Auto) Urine Bacteria (Auto) Hepatitis C Ab Screen 09/04/18 05:24 WBC RBC Hgb Hct MCV MCH MCHC RDW Std Deviation RDW Coeff of Vicki Plt Count MPV Immature Gran % (Auto) Neut % (Auto) Lymph % (Auto) [place] % (Auto) Eos % (Auto) Baso % (Auto) Immature Gran # (Auto) Neut # (Auto) Lymph # (Auto) Dick[place] # (Auto) Eos # (Auto) Baso # (Auto) PT INR Sodium 135 L Potassium 4.4 Chloride 105 Carbon Dioxide 30 Anion Gap 0 L BUN 13 Creatinine 1.25 Est Cr Clr Drug Dosing 82.1 Est GFR ( Amer) 69.6 Est GFR (Non-Af Amer) 60.0 BUN/Creatinine Ratio 10.2 Glucose 118 H Lactate Calcium 7.7 L Magnesium 2.0 Total Bilirubin 1.1 H Direct Bilirubin 0.3 H AST 11 L ALT 10 L Alkaline Phosphatase 60 Troponin I C-Reactive Protein Total Protein 6.0 L Albumin 2.7 L Globulin 3.3 Albumin/Globulin Ratio 0.8 L Prostate Specific Ag Urine Color Urine Appearance Urine pH Ur Specific [place] Urine Protein Urine Glucose (UA) Urine Ketones Urine Blood Urine Nitrite Urine Bilirubin Urine Urobilinogen Ur Leukocyte Esterase Urine WBC (Auto) Urine RBC (Auto) U Hyaline Cast (Auto) U Epithel Cells (Auto) Urine Bacteria (Auto) Hepatitis C Ab Screen
[2018-09-04] MEDS: TAMSULOSIN HCL 0.4 MG CAP PO SCH (20:32)
[2018-09-05] MEDS: SODIUM CHLORIDE 0.9% 1000ML 1,000 ML IV SCH (05:47)
[2018-09-05 06:40] LABS: Hemoglobin 12.4 g/dL (14.0-18.0); Mean Corpuscular Hgb Conc 32.6 g/dL (32-36); Mean Corpuscular Volume 93.8 fL (80-100); Mean Platelet Volume 9.6 fL (7.4-10.4); Platelet Count 172 K/uL (130-400); RDW Coefficient of Variation 13.4 % (11.5-14.5); RDW Standard Deviation 46.2 fL (36.4-46.3); Red Blood Count 4.05 M/uL (4.7-6.1); White Blood Count 8.07 K/uL (4.8-10.8)
[2018-09-05 07:09] LABS: BUN Creatinine Ratio 9.4 (10-20); Calcium 8.5 mg/dl (8.5-10.1); Creatinine Clr Calc Pharmacy 93.9 ml/min; Est GFR (African American) 81.2; Est GFR (Non-African American) 70.1; Potassium 4.5 mmol/L (3.5-5.1)
[2018-09-05] MEDS: FINASTERIDE 5 MG TAB PO SCH (08:01)
[2018-09-05] MEDS: LISINOPRIL 10 MG TAB PO SCH (08:01)
[2018-09-05] MEDS: SERTRALINE HCL 50 MG TABLET PO SCH (08:01)
[2018-09-05] MEDS: PANTOprazole 40 MG TAB PO SCH (08:01)
--- NOTE | 2018-09-05 08:26 | Discharge Summary ---
Date of Service September 05, 2018 Admission HPI Per Admitting Provider 63-year-old male with past medical history significant for morbid obesity, hyperlipidemia, hypertension, GERD, anxiety, who presented to the ER yesterday with burning micturition, some nausea, and found to have a temp spike in the ER, elevated white count and UA was positive and he was given Rocephin . CAT scan was showing possible cystitis versus prostatitis. Discharged on Cipro. The patient did okay at home, but two of the blood tests came back as positive for gram-positive cocci and was called for admission. The patient is currently hemodynamically stable, afebrile. White count is still 16.5. Point of care lactic acid was 2.1. INR was 1.4 and total bilirubin 3.1. CRP was 18.9, so we were called for admission. The patient says urinary symptoms have improved now. Patient is feeling fine. Denies any chest pain, no shortness of breath. He earlier felt nausea but it is improved. He says symptoms are since Friday and his appetite is down since Friday. Denies any headache, no blurred visions, no earache, no runny nose, no sore throat, no difficulty swallowing. No abdominal pain. Normal bowel movements. No swelling in the legs. Lives with his . Currently resting comfortably and hemodynamically stable. Admission Exam Per Admitting Provider GENERAL: The patient is alert and oriented, not in acute distress. VITAL SIGNS: Temperature 36.8, pulse 80, respiratory rate 23, blood pressure 131/65, oxygen 93% on room air. HEENT: No pallor, no icterus. Pupils equal, round, and reactive to light. NECK: No JVD, no neck masses, no carotid bruits. CARDIOVASCULAR: S1, S2 heard, regular rate and rhythm, no murmur, no gallop. RESPIRATORY SYSTEM: Normal AP diameter. No accessory muscle use. No wheezing, no crackles. ABDOMEN: Soft, bowel sounds present. Nontender. No distention. CENTRAL NERVOUS SYSTEM: Cranial nerves II-XII grossly intact. Nonfocal. EXTREMITIES: No edema, no erythema. Principal Diagnosis Acute prostatitis sec to Enterobacter Obesity Sepsis sec to enterobacter HTN GERD Discharge Data Allergies Allergy/AdvReac Type Severity Reaction Status Date / Time No Known Allergies Allergy Verified 09/03/18 03:51 Consultations 09/03/18 04:32 ED Decision to Admit Stat 09/03/18 08:00 Consult Urology Routine Ordered Studies 09/03/18 05:42 US liver Urgent Hospital Course (1) Sepsis: (2) Bacteremia due to Gram-negative bacteria: (3) Acute prostatitis: (4) Leukocytosis: (5) HTN (hypertension): (6) GERD (gastroesophageal reflux disease): DC Zosyn start Rocephin, Pansensitive Enterobacter, on Case, WBCs now normal, Repeat Blood cultures neg for 24 hours DC when afeb and if blood culture neg tomorrow, likely 09/06 Labs checked ROS-No Headache, No Visual Changes, No Nausea, No Vomiting, No Fever, No Chills, No Neck Pain or Stiffness, No Chest Pain, No Palpitations, No SOB, No ANDINO, No Cough, No Sputum, No Wheezing, No Abdominal Pain, No Diarrhea, No Hematemesis, No Hemoptysis, No Unexpected Weight Loss, No Flank pain, No Melena, No Hematochezia, +Frequency, +Urgency, +Burning, No Hematuria, No Rashes, No Diaphoresis. Appetite is Normal Physical Exam Gen-AAO x 3, NAD, Febrile yesterday Head-NCAT, EOMI, PERRLA, Anicteric Sclera, No Posterior Pharyngeal Erythema Neck-Supple, No JVD, No Thyromegaly, No Masses, No LAD, No Bruits Lungs-Clear to Auscultation Bilaterally, No Rales, No Rhonchi, No Wheezing, No Crepitus Chest-No S4, +S1, +S2, No S3, No Murmurs, No Rubs, No Gallops, No Ectopy Abdomen-Soft, Bowel Sounds Present, Non Tender, Non Distended, No Hepatomegaly, No Splenomegaly, No Palpable Masses, No Rebound, No Rigidity, No Guarding Musculoskeletal-Full Range of Motion Bilaterally, No CVAT Extremities-No Cyanosis, No Clubbing, No Edema Nuero-Cranial Nerves II-XII grossly intact, Motor WNL, DTRs WNL, Strength WNL, Non Focal Psych-Normal Mood Total Time Total Time Spent Total Time Spent (In Minutes): 60 mins Discharge Plan Discharge Items Patient Disposition: Home - Self-Care Reason For Visit: BACTEREMIA Discharge Diagnosis: Acute prostatitis sec to Enterobacter Obesity Sepsis sec to enterobacter HTN GERD Discharge Goals: Decrease discomfort, Improve disease control and Improve function Activity: Resume your previous activity Lifting: Gradually increase as tolerated Bathing: No limitations Sexual Activity: When tolerated Exercise/Sports: Rest today Driving/Machine Use: No limitations Weightbearing: Left weightbearing and Right weightbearing Non-emergency contact: Primary Care Provider Call non-emergency contact if: you have any medication questions and your temperature is above 100.5 Follow-up/Referrals: Clifton Casas MD [Primary Care Provider] - (call for first opening) Ryan Michaud II, DO [Physician] - (1-2 weeks-Urologist) Diet: Heart Healthy Addtl Provider Instructions: Routine follow up c PCP and Urology Prescriptions: New tamsulosin 0.4 mg Capsule 0.4 mg PO HS Qty: 30 RF: 0 finasteride [Proscar] 5 mg Tablet 5 mg PO QAM Qty: 30 RF: 0 levofloxacin [Levaquin] 500 mg tablet 500 mg PO DAILY 8 Days Qty: 8 RF: 0 phenazopyridine [Pyridium] 200 mg tablet 200 mg PO Q8H PRN (Reason: pain) Qty: 6 RF: 0 Continued lisinopril 10 mg Tablet 10 mg PO QAM RF: 0 lansoprazole 15 mg Capsule,Delayed Release(Dr/Ec) 15 mg PO QAM RF: 0 sertraline [Zoloft] 25 mg Tablet 25 mg PO QAM RF: 0 Discontinued ciprofloxacin HCl [Cipro] 500 mg tablet 500 mg PO Q12H Qty: 28 RF: 0 Stand-Alone Forms: [facility] Discharge Orders: Discharge Order (Routine); Ordered 09/05/18 Ordered By: Jimmy Luis Admission Data Admit Date/Time: 09/03/18 05:01 Attending Provider: Jimmy Luis Admit Provider: Rafa Hickman Primary Care Provider: Clifton Casas Other Providers: Rafa Hickman ; Ryan Michaud II Service: Medical
[2018-09-05] MEDS: cefTRIAXone SODIUM 2,000 MG in DEXTROSE 5% 50 ML IV SCH (09:34)
== END 2018-09-05 11:07 | disposition home or self-care (01) | DRG 872 ==
LOC: ED 02:15 → 2W 05:01

== ENCOUNTER 2022-01-02 11:52 | Inpatient (IN) ==
--- NOTE | 2022-01-02 12:23 | Emergency Department Note ---
Impression & Plan Atrial fibrillation with rapid ventricular response, Chest pain ED Provider Note NAME: DESHAUN DARDEN Jr AGE: 66 SEX: M : 1955 ARRIVES VIA: Walk-In INFORMANT: Patient, ED PROVIDER(S): Butch Malave DO CHIEF COMPLAINT: Chest pain HPI: The patient is a 66-year-old male who presented to the emergency department for an evaluation of chest discomfort and difficulty breathing. The patient states he was exerting himself earlier before from coming to the emergency department and doing heavy lifting. He started noticing that he was having heart palpitations and his heart was racing. He presented to the emergency department for further evaluation. He denies having any lower extremity swelling. He denies having any abdominal pain. He said no recent illnesses such as fever nausea vomiting or diarrhea. He states at this time his symptoms are most completely resolved. He has had no recent traveling. He is not been seen by his primary care physician for the symptoms. He has no history of atrial fibrillation but does have a history of pulmonary embolism. ROS: See above HPI for pertinent positives & negatives. A total of 10 systems reviewed and were otherwise negative. PAST MEDICAL HISTORY: See Below PAST SURGICAL HISTORY: See Below FAMILY HISTORY: See Below SOCIAL HISTORY: See Below HOME MEDICATIONS: See Below ALLERGIES: See Below VITALS: See Below PHYSICAL EXAMINATION: GENERAL: Patient is awake alert in no acute distress patient is resting comfortably and showing no signs of anxiety EYES: The conjunctivae are clear. The pupils are round and reactive. EARS, NOSE, MOUTH AND THROAT: The nose is without any evidence of any deformity. Mucous membranes are moist. Tongue is midline. NECK: The neck is nontender and supple. RESPIRATORY: Normal respiratory effort is noted there is no evidence of wheezing rhonchi or rales CARDIOVASCULAR: Irregular heart sounds were noted auscultation. There is no definite murmur. GASTROINTESTINAL: The abdomen is soft. Abdomen is nontender. MUSCULOSKELETAL/EXTREMITIES: There is no evidence of gross deformity full range of motion is noted in the hips and shoulders. SKIN: Skin is warm and dry. There is no significant pedal edema. NEUROLOGIC: Patient is awake alert and oriented x3 MEDICAL DECISION MAKING: The patient is a 66-year-old male who presented to the emergency department with chest pain. The patient states he was doing some exertional activity when he developed chest pain and also felt his heart was pounding. The patient presented to the emergency department. He was found to be in A. fib with RVR. The patient had significant improvement of symptoms upon arrival. He was treated with aspirin. I discussed patient's laboratory and radiographic studies with him. [facility] have agreed to evaluate the patient in the emergency department for further management and disposition. Patient was treated with heparin and beta- blockers in the emergency department. Triage Nursing notes reviewed. Prior medical records reviewed Vital Signs: reviewed and remarkable for tachycardia and hypertension. Differential diagnosis: Cardiac ischemia, aortic dissection, pulmonary embolism, pneumothorax, pneumonia, pericarditis, myocarditis, esophageal rupture, GERD, cholecystitis, pancreatitis, musculoskeletal, as well as other pathologies. ER treatment provided: See below Diagnostics interpreted by me: ECG: EKG was obtained in the emergency department. My interpretation is atrial fibrillation at 106 bpm. There were no acute ST segment abnormalities noted. This was compared to a tracing from October 23, 2021. Sinus rhythm has been replaced with atrial fibrillation Cardiac Monitoring: An order was placed for continuous cardiac monitoring. The monitor shows a rate of 146 bpm with atrial fibrillation with RVR. Laboratory studies: As stated above and show below. Imaging studies: See below Consultation(s): I discussed this case with Gilma who [facility] They will evaluate the patient in the emergency department. I have personally spent greater than 35 minutes of critical care time in the direct management of this patient. This includes bedside care, interpretation of diagnostic studies, and testing, discussion with consultants, patient, and family members, and other required patient management activities. This 35 minutes is in excess of all separately billable procedures. Past Med/Surg History Medical History Anxiety Bilateral pulmonary embolism "a couple years ago"--unknown etiology, was on eliquis for year, stopped and no longer on it BPH (benign prostatic hyperplasia) Chronic back pain Diabetes mellitus, type II GERD (gastroesophageal reflux disease) Hearing deficit HTN (hypertension) Morbid obesity with BMI of 45.0-49.9, adult Surgical History History of appendectomy History of cholecystectomy History of colonoscopy History of cystoscopy History of esophagogastroduodenoscopy (EGD) History of tooth extraction History of wisdom tooth extraction Hx of tonsillectomy Hx of vasectomy Family History Father Prostate cancer Father Prostate cancer Family/Other Pancreatic cancer Uncle Family history of diabetes mellitus Uncle Family history of diabetes mellitus Other No family history of adverse response to anesthesia Social History Smoking Status: Never smoker Second Hand Exposure: No; Do You Dip or Chew Tobacco: No; Tobacco Cessation Education Requested by Patient: No Hx Alcohol Use: No Hx Substance Use: No Preferred Language: Polish Communication Ability: Effective Health Records Technology Teacher Required: No Beliefs That Will Affect Care: None marital status: Current Living Situation: Spouse Current Living Situation Comment: Lives with and mom and son current occupational status: retired Other Information That Helps Us Care for You: No Feels Safe at Home: Yes Assistive Devices: Glasses Allergies Allergies Allergy/AdvReac Type Severity Reaction Status Date / Time No Known Allergies Allergy Verified 10/23/21 23:15 Home Meds Home Medications Medication Instructions Recorded Confirmed lansoprazole 15 mg capsule,delayed 15 mg PO QAM 09/02/18 01/02/22 release lisinopril 10 mg tablet 10 mg PO QAM 09/02/18 01/02/22 Previous Rx's Medication Instructions Recorded dutasteride 0.5 mg capsule 0.5 mg PO DAILY #90 caps 09/11/21 tamsulosin 0.4 mg capsule 0.4 mg PO DAILY #90 caps 09/11/21 Results & Data (ED) Vital Signs Vital Signs - 24 hr 01/02/22 11:55 01/02/22 12:38 01/02/22 12:38 Temperature 35.6 C L Temperature Source Temporal Artery Scan Pulse Rate 94 H Pulse Rate [Apical] 114 H Pulse Rate from SpO2 Sensor Respiratory Rate 18 18 Respiratory Effort / Characteristics Non-Labored Respiratory Depth Normal Respiratory Pattern Regular Blood Pressure 152/79 H Blood Pressure [Left Arm] 164/88 H Blood Pressure Mean 103 Blood Pressure Mean [Left Arm] 113 Pulse Oximetry 98 95 Oxygen Delivery Method Room Air Room Air Sepsis Recent Fever Within 48 Hours No Sepsis New/Unexplained Change in Mental Status N/A Sepsis Action Taken by Nursing No Action Required 01/02/22 12:38 01/02/22 13:00 01/02/22 13:00 Temperature Temperature Source Pulse Rate 91 H Pulse Rate [Apical] Pulse Rate from SpO2 Sensor 87 Respiratory Rate 12 Respiratory Effort / Characteristics Respiratory Depth Respiratory Pattern Blood Pressure 142/96 H Blood Pressure [Left Arm] Blood Pressure Mean 111 Blood Pressure Mean [Left Arm] Pulse Oximetry 95 95 Oxygen Delivery Method Room Air Sepsis Recent Fever Within 48 Hours Sepsis New/Unexplained Change in Mental Status Sepsis Action Taken by Nursing 01/02/22 13:30 01/02/22 13:30 Temperature Temperature Source Pulse Rate 92 H Pulse Rate [Apical] Pulse Rate from SpO2 Sensor 86 Respiratory Rate 12 Respiratory Effort / Characteristics Respiratory Depth Respiratory Pattern Blood Pressure 126/81 Blood Pressure [Left Arm] Blood Pressure Mean 96 Blood Pressure Mean [Left Arm] Pulse Oximetry 96 Oxygen Delivery Method Room Air Sepsis Recent Fever Within 48 Hours Sepsis New/Unexplained Change in Mental Status Sepsis Action Taken by Residential Medications Current Medication List: was personally reviewed by me Laboratory Data Attestation: I reviewed the patient's lab results. Result diagrams: 01/02/22 12:14 01/02/22 12:14 Lab Results 01/02/22 01/02/22 01/02/22 Range/Units 12:14 12:14 12:14 WBC 7.76 (4.8-10.8) K/ul RBC 5.06 (4.63-6.08) M/uL Hgb 15.7 (14.0-18.0) g/dl Hct 46.4 (40.1-51.0) % MCV 91.7 (80.0-100.0) fL MCH 31.0 (25.0-34.0) pg MCHC 33.8 (32.0-36.0) g/dL RDW Std Deviation 40.5 (36.4-46.3) fL RDW Coeff of Vicki 12.0 (11.5-14.5) % Plt Count 230 (130-400) K/uL MPV 10.0 (9.4-12.4) fL Immature Gran % (Auto) 0.1 % Neut % (Auto) 52.9 % Lymph % (Auto) 35.1 % Sioux % (Auto) 8.5 % Eos % (Auto) 2.6 % Baso % (Auto) 0.8 % Neut # (Auto) 4.11 (1.4-6.5) K/uL Lymph # (Auto) 2.72 (1.2-3.4) K/uL Sioux # (Auto) 0.66 (0.24-0.82) K/uL Eos # (Auto) 0.20 (0-0.50) K/uL Baso # (Auto) 0.06 (0-0.2) K/uL Immature Gran # (Auto) 0.01 (0.00-0.02) K/uL PT 10.7 (9.0-12.0) Seconds INR 1.0 (0.9-1.1) APTT 26.0 (21.0-31.0) Seconds PTT Ratio 0.9 Sodium 139 (136-145) mmol/L Potassium 4.5 (3.5-5.1) mmol/L Chloride 106 (98-107) mmol/L Carbon Dioxide 25 (21-32) mmol/L Anion Gap 8 (3-11) BUN 14 (6-23) mg/dl Creatinine 1.12 (0.6-1.4) mg/dl Est Cr Clr Drug Dosing 85.2 ml/min Est GFR ( Amer) 77.8 ml/min Est GFR (Non-Af Amer) 67.1 ml/min BUN/Creatinine Ratio 12.5 (10-20) Glucose 107 H (70-99(Fasting)) mg/dl Calcium 9.4 (8.5-10.1) mg/dl Magnesium 2.1 (1.7-2.4) mg/dl Total Bilirubin 1.3 H (0.2-1.0) mg/dl AST 24 (13-39) U/L ALT 10 (7-52) U/L Alkaline Phosphatase 68 (34-104) U/L Troponin I High Sens 10.2 (0-20) pg/ml Total Protein 7.4 (6.0-8.3) gm/dl Albumin 4.2 (3.4-5.0) gm/dl Globulin 3.2 (2.5-4.0) gm/dl Albumin/Globulin Ratio 1.3 (0.9-2) TSH (0.300-4.500) uIu/ml Lyme Disease IgG Ab (Negative) Lyme Disease IgM Ab (Negative) SARS-CoV-2, RNA, NAAT (NEGATIVE) 01/02/22 01/02/22 01/02/22 Range/Units 12:14 12:14 12:41 WBC (4.8-10.8) K/ul RBC (4.63-6.08) M/uL Hgb (14.0-18.0) g/dl Hct (40.1-51.0) % MCV (80.0-100.0) fL MCH (25.0-34.0) pg MCHC (32.0-36.0) g/dL RDW Std Deviation (36.4-46.3) fL RDW Coeff of Vicki (11.5-14.5) % Plt Count (130-400) K/uL MPV (9.4-12.4) fL Immature Gran % (Auto) % Neut % (Auto) % Lymph % (Auto) % Sioux % (Auto) % Eos % (Auto) % Baso % (Auto) % Neut # (Auto) (1.4-6.5) K/uL Lymph # (Auto) (1.2-3.4) K/uL Sioux # (Auto) (0.24-0.82) K/uL Eos # (Auto) (0-0.50) K/uL Baso # (Auto) (0-0.2) K/uL Immature Gran # (Auto) (0.00-0.02) K/uL PT (9.0-12.0) Seconds INR (0.9-1.1) APTT (21.0-31.0) Seconds PTT Ratio Sodium (136-145) mmol/L Potassium (3.5-5.1) mmol/L Chloride (98-107) mmol/L Carbon Dioxide (21-32) mmol/L Anion Gap (3-11) BUN (6-23) mg/dl Creatinine (0.6-1.4) mg/dl Est Cr Clr Drug Dosing ml/min Est GFR ( Amer) ml/min Est GFR (Non-Af Amer) ml/min BUN/Creatinine Ratio (10-20) Glucose (70-99(Fasting)) mg/dl Calcium (8.5-10.1) mg/dl Magnesium (1.7-2.4) mg/dl Total Bilirubin (0.2-1.0) mg/dl AST (13-39) U/L ALT (7-52) U/L Alkaline Phosphatase (34-104) U/L Troponin I High Sens (0-20) pg/ml Total Protein (6.0-8.3) gm/dl Albumin (3.4-5.0) gm/dl Globulin (2.5-4.0) gm/dl Albumin/Globulin Ratio (0.9-2) TSH 3.484 (0.300-4.500) uIu/ml Lyme Disease IgG Ab Negative (Negative) Lyme Disease IgM Ab Negative (Negative) SARS-CoV-2, RNA, NAAT NEGATIVE (NEGATIVE) Administered Medications Heparin Sodium/Dextrose (Heparin Sodium/Dextrose) 25,000 units in 500 mls @ 34 mls/hr IV .[id number] [facility]; Protocol Stop: 02/01/22 14:44 Last Admin: 01/02/22 16:33 Dose: 1,700 units/hr, 34 mls/hr Documented By: BROOKE Co-signed By: ASHU Discontinued Medications Aspirin (Aspirin Chew 324 Mg) 324 mg PO NOW STA Stop: 01/02/22 12:25 Last Admin: 01/02/22 12:37 Dose: 324 mg Documented By: SE Metoprolol Tartrate (Metoprolol Tartrate 25 Mg Tab) 25 mg PO NOW STA Stop: 01/02/22 14:19 Last Admin: 01/02/22 14:51 Dose: 25 mg Documented By: BRENNEN Imaging Data Radiologist's Impression: Chest X-Ray 01/02/22 11:58 XR chest 1V portable HISTORY: 66 years-old Male Chest Pain acute chest pain COMPARISON: Chest radiograph 10/23/2021 TECHNIQUE: AP view of the chest FINDINGS: Cardiac silhouette is upper limits of normal in size. No pneumothorax, pleural effusion, airspace consolidation or overt pulmonary edema. Degenerative changes of the shoulders and spine. IMPRESSION: No acute process. ACT 112: Negative or not required by law. The above report was generated using voice recognition software. It may contain grammatical, syntax or spelling errors. Electronically signed by: Ruddy Roach M.D. 01/02/2022 12:27 PM Discharge Plan Visit Data Chief Complaint: Chest Pain Stated Complaint: CHEST PAIN, WEAKNESS ED Provider: Butch Malave Discharge Problem: Atrial fibrillation with rapid ventricular response, Chest pain Patient Disposition: Admitted As Inpatient Discharge Instructions Interventions: ED Discharge Assessment Last Done: 01/02/22 14:58 : Chest pain Qualifiers: Chest pain type: unspecified Qualified Code(s): R07.9 - Chest pain, unspecified
[2022-01-02] MEDS ORDERED: ASPIRIN CHEW 324 MG PO STA (12:24)
--- NOTE | 2022-01-02 12:28 | XRay Report ---
XR chest 1V portable HISTORY: 66 years-old Male Chest Pain acute chest pain COMPARISON: Chest radiograph 10/23/2021 TECHNIQUE: AP view of the chest FINDINGS: Cardiac silhouette is upper limits of normal in size. No pneumothorax, pleural effusion, airspace con solidation or overt pulmonary edema. Degenerative changes of the shoulders and spine. IMPRESSION: No acute process. ACT 112: Negative or not required by law. The above report was generated using voice recognition software. It may contain grammatical, syntax o r spelling errors. Electronically signed by: Ruddy Roach M.D. 01/02/2022 12:27 PM
[2022-01-02 12:29] LABS: Basophils # (auto) 0.06 K/uL (0-0.2); Basophils % (auto) 0.8 %; Eosinophils % (auto) 2.6 %; Hematocrit (blood only) 46.4 % (40.1-51.0); Hemoglobin 15.7 g/dl (14.0-18.0); Immature Granulocytes # (auto) 0.01 K/uL (0.00-0.02); Immature Granulocytes % (auto) 0.1 %; Lymphocytes # (auto) 2.72 K/uL (1.2-3.4); Lymphocytes % (auto) 35.1 %; Mean Corpuscular Hgb Conc 33.8 g/dL (32.0-36.0); Mean Corpuscular Volume 91.7 fL (80.0-100.0); Monocytes # (auto) 0.66 K/uL (0.24-0.82); Monocytes % (auto) 8.5 %; Neutrophils # (auto) 4.11 K/uL (1.4-6.5); Neutrophils % (auto) 52.9 %; Platelet Count 230 K/uL (130-400); RDW Standard Deviation 40.5 fL (36.4-46.3); Red Blood Count 5.06 M/uL (4.63-6.08); White Blood Count 7.76 K/ul (4.8-10.8)
[2022-01-02 12:45] LABS: Partial Thromboplastin Ratio 0.9; Prothrombin Time 10.7 Seconds (9.0-12.0)
[2022-01-02 12:54] LABS: Albumin Globulin Ratio 1.3 (0.9-2); Albumin Level 4.2 gm/dl (3.4-5.0); BUN Creatinine Ratio 12.5 (10-20); Bilirubin,Total 1.3 mg/dl (0.2-1.0); Calcium 9.4 mg/dl (8.5-10.1); Creatinine Clr Calc Pharmacy 85.2 ml/min; Est GFR (African American) 77.8 ml/min; Est GFR (Non-African American) 67.1 ml/min; Globulin 3.2 gm/dl (2.5-4.0); Magnesium 2.1 mg/dl (1.7-2.4); Potassium 4.5 mmol/L (3.5-5.1); Total Protein 7.4 gm/dl (6.0-8.3); Troponin I High Sensitivity 10.2 pg/ml (0-20)
--- NOTE | 2022-01-02 13:46 | History & Physical Report ---
Date of Service January 02, 2022 Assessment & Plan (1) Chest pain: (2) Atrial fibrillation: Plan: Patient is 66 y/o M with PMH HTN, DM II, BPH, anxiety, depression, GERD, obesity, history PE in 2015 presented to ER with complaint of chest pain, SOB today after heavy lifting. In ER found to have Atrial fibrillation on EKG. Heart rate 90s to low 100s at rest. BP stable. No Hypoxia. TSH WNL. Negative Lyme IgG Ab, IgMAb. CXR: no acute findings Chest pain. ?secondary to rapid atrial fibrillation. R/O ACS. Risk factors: HTN, DM, obesity In ER given aspirin 324mg Patient denies any current chest pain, shortness of breath or palpitations Trend troponin Repeat EKG in am Echo Lipid panel in am Start IV Heparin Start metoprolol tartrate 25mg po BID IV metoprolol tartrate prn tachycardia Cardiology consult (3) Diabetes mellitus, type II: Plan: Diet controlled A1c: 7.0 on 08/29/2021 Diabetic diet A1c in a.m. (4) HTN (hypertension): Plan: Continue lisinopril (5) BPH w urinary obs/LUTS: Plan: Continue tamsulosin, dutasteride (6) Bilateral pulmonary embolism: Plan: History bilateral PE in 2016. Was on Eliquis for 1 year (7) GERD (gastroesophageal reflux disease): Plan: Continue PPI DVT Prophylaxis On IV Heparin Full Code as per discussion with pt Follows with Dr Hubbard for routine care Pt was seen and care coordinated with Dr Vasquez. See addendum History of Present Illness Chief Complaint: Chest pain Primary Care Provider: Broderick Hubbard MD Patient is 66 y/o M with PMH HTN, DM II, BPH, anxiety, depression, GERD, obesity, history PE in 2016 presented to ER with complaint of chest pain. Patient states 5 days ago he was not feeling well and states "just felt weird all over". Following day felt back to baseline. Reports 3 days ago had episode mid chest pain with radiation up to esophagus that he thought was reflux. Did not try any intervention at that time. States today was lifting cement blocks he had onset of mid chest discomfort that he has difficulty further describing. Non-radiating pain and rates 3/10 on pain scale. Pain is intermittent. Associated shortness of breath and dizziness. Also reports feeling tired and generalized weakness and some nausea today after onset of chest symptoms. He states felt like his heart was pounding when he was lifting heavy blocks but denies any further palpitation sensation. Reports tick bite approximately 12 days ago that his was able to remove. PCP gave one dose doxycycline 200mg on 12/28/21. Denies any noted rashes, fever, chills. Patient denies any other recent illnesses. Drinks 1 cup of tea couple of times a week. Denies alcohol use. Denies fever/chills, diaphoresis, vomiting, diarrhea, constipation, melena, hematochezia, BURGOS, syncope, vision changes, neck pain, orthopnea, cough, sore throat, choking, otalgia, rhinorrhea, abdominal pain, paresthesias, extremity edema, rashes, urinary symptoms. In ER found to have Atrial fibrillation on EKG. Heart rate 90s to low 100s at rest. Patient denies any current chest pain, shortness of breath or palpitations. Allergies Allergy/AdvReac Type Severity Reaction Status Date / Time No Known Allergies Allergy Verified 10/23/21 23:15 Home Medications Medication Instructions Recorded Confirmed Type lansoprazole 15 mg capsule,delayed 15 mg PO QAM 09/02/18 01/02/22 History release lisinopril 10 mg tablet 10 mg PO QAM 09/02/18 01/02/22 History dutasteride 0.5 mg capsule 0.5 mg PO DAILY #90 caps 09/11/21 01/02/22 Rx tamsulosin 0.4 mg capsule 0.4 mg PO DAILY #90 caps 09/11/21 01/02/22 Rx Past Med/Surg History Medical History Anxiety Bilateral pulmonary embolism "a couple years ago"--unknown etiology, was on eliquis for year, stopped and no longer on it BPH (benign prostatic hyperplasia) Chronic back pain Diabetes mellitus, type II GERD (gastroesophageal reflux disease) Hearing deficit HTN (hypertension) Morbid obesity with BMI of 45.0-49.9, adult Surgical History History of appendectomy History of cholecystectomy History of colonoscopy History of cystoscopy History of esophagogastroduodenoscopy (EGD) History of tooth extraction History of wisdom tooth extraction Hx of tonsillectomy Hx of vasectomy Family History Father Prostate cancer Father Prostate cancer Family/Other Pancreatic cancer Uncle Family history of diabetes mellitus Uncle Family history of diabetes mellitus Other No family history of adverse response to anesthesia Social History Smoking Status: Never smoker Second Hand Exposure: No; Hx Alcohol Use: No Hx Substance Use: No Preferred Language: Mongolian Communication Ability: Effective Strap Setter Required: No Beliefs That Will Affect Care: None marital status: Current Living Situation: Spouse and Parent Current Living Situation Comment: Lives with and mom and son current occupational status: retired Feels Safe at Home: Yes Assistive Devices: Glasses and Hearing Aid - Bilateral Review of Systems Review of Systems: All systems reviewed & are unremarkable except as noted in HPI & below Physical Exam Physical Exam: General: no acute distress, obese Head: normocephalic, atraumatic Eyes: conjunctiva non-injected, anicteric ENT: normal inspection external ears, nose, mucous membranes moist Neck: supple, trachea midline Lungs: clear, no respiratory distress, no wheezing/rhonchi/rales CV: Irregularly irregular, rate 102, no murmur, trace pretibial edema Abd: Protuberant, + ventral hernia, normal BS, soft, non-tender Ext: no cyanosis, no calf tenderness Neuro: A&O x 3, no focal deficits noted, normal affect Skin: warm, dry Results & Data Results & Data ([facility]) Vital Signs (Past 12 Hours) Vital Signs Temp Pulse Pulse Resp BP BP Pulse Ox 01/02/22 13:00 91 H 12 95 01/02/22 13:00 142/96 H 01/02/22 12:38 95 01/02/22 12:38 114 H 18 164/88 H 95 01/02/22 12:38 01/02/22 11:55 35.6 C L 94 H 18 152/79 H 98 O2 Del Method 01/02/22 13:00 Room Air 01/02/22 13:00 01/02/22 12:38 01/02/22 12:38 01/02/22 12:38 Room Air 01/02/22 11:55 Room Air Laboratory Results Short CBC 01/02/22 Range/Units 12:14 WBC 7.76 (4.8-10.8) K/ul Hgb 15.7 (14.0-18.0) g/dl Hct 46.4 (40.1-51.0) % Plt Count 230 (130-400) K/uL BMP 01/02/22 12:14 Sodium 139 Potassium 4.5 Chloride 106 Carbon Dioxide 25 BUN 14 Creatinine 1.12 Glucose 107 H Calcium 9.4 Liver Function 01/02/22 Range/Units 12:14 Total Bilirubin 1.3 H (0.2-1.0) mg/dl AST 24 (13-39) U/L ALT 10 (7-52) U/L Alkaline Phosphatase 68 (34-104) U/L Albumin 4.2 (3.4-5.0) gm/dl Diagnostic Findings Chest X-Ray 01/02/22 11:58 XR chest 1V portable HISTORY: 66 years-old Male Chest Pain acute chest pain COMPARISON: Chest radiograph 10/23/2021 TECHNIQUE: AP view of the chest FINDINGS: Cardiac silhouette is upper limits of normal in size. No pneumothorax, pleural effusion, airspace consolidation or overt pulmonary edema. Degenerative changes of the shoulders and spine. IMPRESSION: No acute process. ACT 112: Negative or not required by law. The above report was generated using voice recognition software. It may contain grammatical, syntax or spelling errors. Electronically signed by: Ruddy Roach M.D. 01/02/2022 12:27 PM ECG Rate (beats per minute): 106 Rhythm: atrial fibrillation Findings: + T-wave inversion (Inferior) Supervising Physician Co-Signing Physician Notes Patient is a 66-year-old male with history of diabetes mellitus, hypertension, BPH and other medical problems presents with history of intermittent chest pain, retrosternal, radiates to his throat which he thought was secondary to acid reflux. Patient started to have recurrence of symptoms while lifting cement blocks today. He describes pain to be aching-like, 3/10, associated with dyspnea and dizziness. He also felt pounding heartbeat while exerting today. He was found to be in A. fib RVR while in ED. Please review HPI for complete details of presentation. Blood work fairly within normal limits, glucose slightly elevated 107, total bilirubin 1.3. TSH normal, initial troponin within normal limits as well. Chest x-ray showed no acute process. EKG showed atrial fibrillation with RVR, left axis deviation, nonspecific T wave changes, QTC 374. On exam patient is morbidly obese, no apparent distress, normocephalic atraumatic, normal breath sounds, clear to auscultation, irregularly irregular rhythm, tachycardic, no obvious murmur, trace pedal edema, abdomen soft, nontender, normal bowel sounds,+ hernia, alert, awake, oriented, grossly no focal deficits. Patient is admitted for management of A. fib RVR, chest pain rule out ACS. Started on metoprolol 25 mg twice daily, IV heparin. Will check resting echo, trend cardiac enzymes repeat EKG in the morning and check lipid panel. Cardiology consulted. IV Lopressor as needed will be added as well. I personally reviewed the record. Patient is interviewed and examined at bedside. Patient's care is coordinated with Uzma Miller PA-C. Please refer to the documentation above for details of patient's presentation and for discussion of other issues.
[2022-01-02 13:49] LABS: Lyme Ab IgG w/WB Rflx Negative (Negative); Lyme Ab IgM w/WB Rflx Negative (Negative)
[2022-01-02] MEDS ORDERED: METOPROLOL TARTRATE 25 MG TAB PO STA (14:18)
[2022-01-02] MEDS ORDERED: Heparin IV Adult Wt-Based Standard *NO* Bolus Protocol IV SCH (14:22)
[2022-01-02] MEDS ORDERED: ACETAMINOPHEN 325 MG TAB PO PRN (16:00)
[2022-01-02] MEDS ORDERED: POLYETHYLENE (MIRALAX) 17 GM PACK PO PRN (16:00)
[2022-01-02] MEDS ORDERED: METOPROLOL TARTRATE 1 MG/ML VIAL IV PRN (16:00)
[2022-01-02] MEDS: HEPARIN SODIUM/DEXTROSE 25,000 UNITS/500 ML BAG IV SCH (16:33)
[2022-01-02] MEDS ORDERED: METOPROLOL TARTRATE 25 MG TAB PO SCH (21:00)
[2022-01-02 23:20] LABS: Partial Thromboplastin Ratio 1.6; Partial Thromboplastin Time 44.6 Seconds (21.0-31.0)
[2022-01-03] MEDS: HEPARIN SODIUM/DEXTROSE 25,000 UNITS/500 ML BAG IV SCH (05:35)
--- NOTE | 2022-01-03 05:59 | Electrocardiogram Report ---
Test Reason : Blood Pressure : / mmHG Vent. Rate : 106 BPM Atrial Rate : 104 BPM P-R Int : 000 ms QRS Dur : 090 ms QT Int : 282 ms P-R-T Axes : 000 -43 008 degrees QTc Int : 374 ms Atrial fibrillation with rapid ventricular response Left axis deviation Abnormal ECG When compared with ECG of 23-OCT-2021 22:59, Atrial fibrillation has replaced Sinus rhythm Nonspecific T wave abnormality now evident in Inferior leads Confirmed by Eric Bai ([id number]) on 01/03/2022 5:58:34 AM Referred By: Confirmed By:Eric Bai
[2022-01-03 06:28] LABS: Hematocrit (blood only) 44.2 % (40.1-51.0); Hemoglobin 14.9 g/dl (14.0-18.0); Mean Corpuscular Hgb Conc 33.7 g/dL (32.0-36.0); Mean Corpuscular Volume 92.1 fL (80.0-100.0); Platelet Count 227 K/uL (130-400); RDW Coefficient of Variation 12.3 % (11.5-14.5); RDW Standard Deviation 41.3 fL (36.4-46.3); White Blood Count 7.75 K/ul (4.8-10.8)
[2022-01-03 06:53] LABS: Partial Thromboplastin Ratio 2.1
[2022-01-03 06:59] LABS: Partial Thromboplastin Time 58.1 Seconds (21.0-31.0)
[2022-01-03 07:01] LABS: BUN Creatinine Ratio 14.4 (10-20); Chol HDL Ratio 4.1 (0-5); Creatinine Clr Calc Pharmacy 91.8 ml/min; Est GFR (African American) 85.1 ml/min; Est GFR (Non-African American) 73.4 ml/min; Potassium 4.3 mmol/L (3.5-5.1)
[2022-01-03 08:20] LABS: Estimated Average Glucose 143 mg/dl; Hemoglobin A1C 6.6 % (4.5-5.6)
[2022-01-03] MEDS ORDERED: TAMSULOSIN HCL 0.4 MG CAP PO SCH (09:00)
[2022-01-03] MEDS ORDERED: lisinopril 10 MG TAB PO SCH (09:00)
[2022-01-03] MEDS ORDERED: PANTOprazole 40 MG TAB PO SCH (09:00)
--- NOTE | 2022-01-03 09:03 | Cardiology Consultation ---
Date of Consultation January 03, 2022 Assessment & Plan (1) Atrial fibrillation with rapid ventricular response: (2) HTN (hypertension): Plan Patient admitted with SOB/palpitations, diagnosed with new onset atrial fibrillation with rapid ventricular response. Patient converted to normal sinus rhythm in the emergency department on IV metoprolol. Started on IV heparin for anticoagulation. Labs unremarkable including high-sensitivity troponin. He was started on metoprolol 25 mg twice daily but developed mild sinus bradycardia overnight in the 30s. Metoprolol held this morning. Currently has normal sinus rhythm in the 60s. We had a long conversation today in regards to treatment options for atrial fibrillation. [id number] score of 3 - Age, hypertension, DM - 3.2% stroke risk Recommend Anticoagulation. options discussed. Patient has GHP and previously tolerated Eliquis 5 mg BID. Verified through pharmacy, Eliquis covered. Will give first dose this morning, and at time of first dose, will stop Heparin. He became slightly bradycardiac with IV metoprolol and then oral metoprolol tartrate 25 mg. Will attempt metoprolol succinate 12.5 mg daily upon discharge. EKG was without ischemic changes during admission. HS troponin negative x3. Given his atypical chest pain and new onset atrial fibrillation, will arrange outpatient stress testing. Patient reports he wishes to proceed with exercise stress echo rather than pharmacologic stress testing. Will arrange upon discharge. Case discussed with Dr. Neri. Anticipate discharge today. Supervising Physician Co-Signing Physician Notes Patient seen and personally examined. 66-year-old who presented with paroxysmal atrial fibrillation with spontaneous conversion to sinus rhythm after administration of beta-paige therapy. Now anticoagulated on Eliquis Episode possibly precipitated by vigorous activity, carrying concrete blocks. No signs of angina. No ischemia by EKG or enzyme criteria. Echocardiogram reflects normal LV systolic function with left ventricular perjury Plan as outlined above initiate anticoagulation for stroke risk reduction, low- dose beta-paige. Continued previously dose lisinopril History of Present Illness Reason for Consultation: Atrial fibrillation Requesting Physician: Dr. Delgado Attending Physician: Dr. Neri History of Present Illness Patient is a 66 year old male with history of hypertension, obesity, DM type II (not treated) remote b/l pulmonary embolus in 2016 after possible traumatic chest wall injury for which he was on Eliquis for about 3-6 months. he denies history of prior CVA/TIA or bleeding complications. 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 He noticed increased palpitations and difficulty taking a deep breath. He sat down to rest, but symptoms failed to improve. He came to the ER due to SOB, weakness and palpitations and found to have new onset atrial fibrillation with RVR. He converted in the ER with IV metoprolol and started on IV heparin for anticoagulation therapy. Labs were unremarkable including electrolytes, L[place]. Negative HS troponin He denies history of cardiovascular issues. Denies prior history of arrhythmia, CHF, CAD, valvular disease. He reports he had a remote stress test many years ago which was unremarkable. At time of consult, patient resting comfortably in bed. at bedside. He denies recurrent palpitations or tachypalpitations. No recurrent chest pain or shortness of breath. He has been maintaining normal sinus rhythm overnight. He got mildly bradycardic overnight after 25 mg of metoprolol. Metoprolol held this morning. Heart rates currently in the 60s. He admits to intermittent chest pain, described as a burning sensation over the last 6 months. Attributes this to history of GERD. No current symptoms. 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 Allergies Allergy/AdvReac Type Severity Reaction Status Date / Time No Known Allergies Allergy Verified 10/23/21 23:15 Home Medications Medication Instructions Recorded Confirmed Type lansoprazole 15 mg capsule,delayed 15 mg PO QAM 09/02/18 01/02/22 History release lisinopril 10 mg tablet 10 mg PO QAM 09/02/18 01/02/22 History dutasteride 0.5 mg capsule 0.5 mg PO DAILY #90 caps 09/11/21 01/02/22 Rx tamsulosin 0.4 mg capsule 0.4 mg PO DAILY #90 caps 09/11/21 01/02/22 Rx metoprolol succinate 25 mg 12.5 mg PO QAM #30 tabs 01/03/22 Rx tablet,extended release 24 hr Patient History Medical History Anxiety Bilateral pulmonary embolism "a couple years ago"--unknown etiology, was on eliquis for year, stopped and no longer on it BPH (benign prostatic hyperplasia) Chronic back pain Diabetes mellitus, type II GERD (gastroesophageal reflux disease) Hearing deficit HTN (hypertension) Morbid obesity with BMI of 45.0-49.9, adult Surgical History History of appendectomy History of cholecystectomy History of colonoscopy History of cystoscopy History of esophagogastroduodenoscopy (EGD) History of tooth extraction History of wisdom tooth extraction Hx of tonsillectomy Hx of vasectomy Family History Father Prostate cancer Father Prostate cancer Family/Other Pancreatic cancer Uncle Family history of diabetes mellitus Uncle Family history of diabetes mellitus Other No family history of adverse response to anesthesia Social History Smoking Status: Never smoker Second Hand Exposure: No; Do You Dip or Chew Tobacco: No; Tobacco Cessation Education Requested by Patient: No Hx Alcohol Use: No Hx Substance Use: No Preferred Language: Italian Communication Ability: Effective Heating Mechanic Required: No Beliefs That Will Affect Care: None marital status: Current Living Situation: Spouse Current Living Situation Comment: Lives with and mom and son current occupational status: retired Other Information That Helps Us Care for You: No Feels Safe at Home: Yes Assistive Devices: None Review of Systems Review of Systems: All systems reviewed & are unremarkable except as noted in HPI & below Physical Exam Constitutional: WD/WN, vitals as above + obese Neck: + thick neck Respiratory: normal respiratory effort, lungs clear to auscultation Cardiovascular: Rate/Rhythm: regular rate and regular rhythm Heart Sounds: no murmur Vessels: no JVD Extremities: no edema Gastrointestinal (Abdomen): normal bowel sounds, soft, nontender, no hepatosplenomegaly Skin: no rashes, warm and dry Neurologic: PERRL, EOMI, accommodation nl, no face palsy, no dysarthria Results & Data ([facility]) Vital Signs (Past 12 Hours) Vital Signs Temp Pulse Pulse Resp BP Pulse Ox O2 Del Method 01/03/22 07:09 36.5 C 57 L 20 155/77 H 97 Room Air 01/03/22 02:15 43 L 01/03/22 03:39 36.4 C L 45 L 16 127/71 97 Room Air 01/03/22 00:27 48 L 01/02/22 22:46 36.5 C 59 L 20 143/84 H 95 Room Air Laboratory Results Cardiac Enzymes 01/02/22 01/02/22 01/03/22 Range/Units 12:14 18:03 05:49 AST 24 (13-39) U/L Troponin I High Sens 10.2 11.3 9.2 (0-20) pg/ml Coagulation 01/02/22 01/02/22 01/03/22 Range/Units 12:14 22:52 05:49 PT 10.7 (9.0-12.0) Seconds APTT 26.0 44.6 H 58.1 H* (21.0-31.0) Seconds Lipids 01/03/22 Range/Units 05:49 Triglycerides 113 (0-150) mg/dl Cholesterol 157 (0-200) mg/dl HDL Cholesterol 38 mg/dl Cholesterol/HDL Ratio 4.1 (0-5) CBC 01/02/22 01/03/22 Range/Units 12:14 05:49 WBC 7.76 7.75 (4.8-10.8) K/ul RBC 5.06 4.80 (4.63-6.08) M/uL Hgb 15.7 14.9 (14.0-18.0) g/dl Hct 46.4 44.2 (40.1-51.0) % Plt Count 230 227 (130-400) K/uL Neut # (Auto) 4.11 (1.4-6.5) K/uL Lymph # (Auto) 2.72 (1.2-3.4) K/uL [place] # (Auto) 0.66 (0.24-0.82) K/uL Eos # (Auto) 0.20 (0-0.50) K/uL Baso # (Auto) 0.06 (0-0.2) K/uL Comprehensive Metabolic Panel 01/02/22 01/03/22 Range/Units 12:14 05:49 Sodium 139 138 (136-145) mmol/L Potassium 4.5 4.3 (3.5-5.1) mmol/L Chloride 106 104 (98-107) mmol/L Carbon Dioxide 25 29 (21-32) mmol/L BUN 14 15 (6-23) mg/dl Creatinine 1.12 1.04 (0.6-1.4) mg/dl Glucose 107 H 125 H (70-99(Fasting)) mg/dl Calcium 9.4 9.0 (8.5-10.1) mg/dl AST 24 (13-39) U/L ALT 10 (7-52) U/L Alkaline Phosphatase 68 (34-104) U/L Total Protein 7.4 (6.0-8.3) gm/dl Albumin 4.2 (3.4-5.0) gm/dl Intake and Output 01/02/22 01/03/22 01/03/22 22:59 06:59 14:59 Intake Total 440 / 1295.267 855.267 / 1295.267 Output Total 650 / 1100 450 / 1100 Balance -210 / 195.267 405.267 / 195.267 Intake: IV 455.267 / 455.267 Heparin Sodium/Dextrose 25,000 455.267 / 455.267 units In 500 ml @ 1,800 UNITS/ HR 36 mls/hr IV .[id number] [facility] Rx #:[id number] Oral 440 / 840 400 / 840 Output: Urine 650 / 1100 450 / 1100 Other: Weight 132.6 kg Weight Measurement Method Built in [facility] Diagnostic Findings Telemetry reviewed; Normal sinus rhythm and sinus bradycardia with HR's ranging 55-70's. Upon arrival to ER he was in atrial fibrillation with RVR, converting to NSR around 5:30 PM last evening, 01/02 Repeat EKG: Sinus bradycardia with marked sinus arrhythmia Sinus rhythm has replaced Atrial fibrillation EKG on admission: Atrial fibrillation with rapid ventricular response Left axis deviation when compared with prior EKG, afib has replaced NSR Chest Xray: no acute process echo report reviewed 01/03/22 Sinus bradycardia at time of exam The LV is normal in size Moderate Concentric LVH The LV wall motion is normal. LVEF 60-65% No significant valvular The LA size is normal. Medications Administered Current Inpatient Medications Acetaminophen (Acetaminophen 325 Mg Tab) 650 mg PO Q4H PRN PRN Reason: Pain or Fever Stop: 02/01/22 15:59 Apixaban (Apixaban 5 Mg Tablet) 5 mg PO BID [facility] Stop: 02/02/22 10:44 Last Admin: 01/03/22 10:59 Dose: 5 mg Lisinopril ([facility] 10 Mg Tab) [facility] Stop: 02/02/22 08:59 Last Admin: 01/03/22 08:28 Dose: 10 mg Metoprolol Succinate (Metoprolol Succ 25mg Ext Rel Tab) 12.5 mg PO QAM [facility] Stop: 02/02/22 10:44 Metoprolol Tartrate (Metoprolol Tartrate 1 Mg/Ml Vial) 5 mg IV Q6 PRN PRN Reason: tachycardia Stop: 02/01/22 15:59 Miscellaneous (Dutasteride 0.5 Mg Capsule ~ Order Awaiting Action) 1 each N/A QS [facility] Stop: 02/02/22 00:00 Last Admin: 01/03/22 08:29 Dose: Not Given Pantoprazole Sodium (Pantoprazole 40 Mg Tab) [facility] Stop: 02/02/22 08:59 Last Admin: 01/03/22 08:29 Dose: 40 mg Polyethylene Glycol (Polyethylene (Miralax) 17 Gm Pack) 17 gm PO DAILY PRN PRN Reason: Constipation Stop: 02/01/22 15:59 Tamsulosin HCl (Tamsulosin Hcl 0.4 Mg Cap) 0.4 mg PO DAILY [facility] Stop: 02/02/22 08:59 Last Admin: 01/03/22 08:29 Dose: 0.4 mg
[2022-01-03] MEDS ORDERED: METOPROLOL SUCC 25MG EXT REL TAB PO SCH (10:45)
[2022-01-03] MEDS ORDERED: APIXABAN 5 MG TABLET PO SCH (10:45)
--- NOTE | 2022-01-03 14:31 | Discharge Summary ---
Date of Service January 03, 2022 Admission HPI Per Admitting Provider Patient is 66 y/o M with PMH HTN, DM II, BPH, anxiety, depression, GERD, obesity, history PE in 2016 presented to ER with complaint of chest pain. Patient states 5 days ago he was not feeling well and states "just felt weird all over". Following day felt back to baseline. Reports 3 days ago had episode mid chest pain with radiation up to esophagus that he thought was reflux. Did not try any intervention at that time. States today was lifting cement blocks he had onset of mid chest discomfort that he has difficulty further describing. Non-radiating pain and rates 3/10 on pain scale. Pain is intermittent. A ssociated shortness of breath and dizziness. Also reports feeling tired and generalized weakness and some nausea today after onset of chest symptoms. He states felt like his heart was pounding when he was lifting heavy blocks but denies any further palpitation sensation. Reports tick bite approximately 12 days ago that his was able to remove. PCP gave one dose doxycycline 200mg on 12/28/21. Denies any noted rashes, fever, chills. Patient denies any other recent illnesses. Drinks 1 cup of tea couple of times a week. Denies alcohol use. Denies fever/chills, diaphoresis, vomiting, diarrhea, constipation, melena, hematochezia, BURGOS, syncope, vision changes, neck pain, orthopnea, cough, sore throat, choking, otalgia, rhinorrhea, abdominal pain, paresthesias, extremity edema, rashes, urinary symptoms. In ER found to have Atrial fibrillation on EKG. Heart rate 90s to low 100s at rest. Patient denies any current chest pain, shortness of breath or palpitations. Admission Exam Per Admitting Provider Physical Exam: General: no acute distress, obese Head: normocephalic, atraumatic Eyes: conjunctiva non-injected, anicteric ENT: normal inspection external ears, nose, mucous membranes moist Neck: supple, trachea midline Lungs: clear, no respiratory distress, no wheezing/rhonchi/rales CV: Irregularly irregular, rate 102, no murmur, trace pretibial edema Abd: Protuberant, + ventral hernia, normal BS, soft, non-tender Ext: no cyanosis, no calf tenderness Neuro: A&O x 3, no focal deficits noted, normal affect Skin: warm, dry Principal Diagnosis New onset atrial fibrillation with RVR, converted to sinus rhythm Discharge Exam Constitutional: WD/WN, vitals as above, NAD, sitting up in bed, pleasant, conversing easily Neck: trachea midline, no thyromegaly normal visual inspection Respiratory: normal respiratory effort, lungs clear to auscultation, no wheeze, rales, rhonchi. Normal insp/exp effort, no accessory muscle use Cardiovascular: RRR, no murmur, no edema Vessels: no JVD or carotid bruit Chest: normal inspection of chest Abdomen: Ventral hernia present Musculoskeletal: no cyanosis or clubbing, extremities motor strength 5/5 Skin: no rashes, warm and dry normal turgor Neurologic: PERRL, EOMI, accommodation nl, no face palsy, no dysarthria CN's II- XI intact bilaterally and moves all extremities Psychiatric: A+Ox3, euthymic affect Lymphatic: no cervical or axillary lymphadenopathy : deferred Discharge Data Allergies Allergy/AdvReac Type Severity Reaction Status Date / Time No Known Allergies Allergy Verified 10/23/21 23:15 Consultations 01/02/22 13:30 ED Decision to Admit Stat 01/02/22 14:18 Consult Cardiology Routine Hospital Course (1) Chest pain: (2) Atrial fibrillation: (3) Diabetes mellitus, type II: (4) HTN (hypertension): (5) BPH w urinary obs/LUTS: (6) Bilateral pulmonary embolism: (7) GERD (gastroesophageal reflux disease): Plan Patient is a 66-year-old male with history of diabetes mellitus, hypertension, BPH and other medical problems presents with heart fluttering and chest pain. In the ED, he was found to have new onset A. fib with RVR. High-sensitivity troponin was trended 3 times; negative. Patient was given metoprolol and was started on heparin drip. He was admitted to telemetry floor. Cardiology was consulted. Overnight, patient converted to sinus rhythm with sinus bradycardia. His chest pain resolved. Echo was done which showed moderate concentric left ventricular hypertrophy with EF of 60 to 65% with no significant valvular abnormality. Cardiology recommended patient to be started on metoprolol 12.5 once daily due to sinus bradycardia. He was also prescribed Eliquis. He will follow-up with cardiology as outpatient for stress test. Total Time Total Time Spent Total Time Spent (In Minutes): 35 Total Time Includes: Examination of the Patient, Discharge Planning, Medication Reconciliation, Communication With Other Providers and Other Discharge Plan Discharge Items Patient Disposition: Home - Self-Care Reason For Visit: CP, AFIB Discharge Diagnosis: New onset Atrial fibrillation with RVR Activity: Resume your previous activity Non-emergency contact: Primary Care Provider Call non-emergency contact if: you have any medication questions and your symptoms worsen Follow-up/Referrals: [facility] Cardiology [Other] ([facility] Cardiology office will call you with a follow up appointment.) Broderick Hubbard MD [Primary Care Provider] - (Date & Time 01/09/2022 11:00 AM Provider Broderick Hubbard MD Department [facility] ) Diet: Heart Healthy Addtl Attending Provider Instructions: You were admitted to the hospital with irregular heart rhythm called atrial fibrillation. You are prescribed following medications: Eliquis 5 mg twice daily. The prescription is sent over by the cardiology team. Metoprolol 12.5 mg ( half tablet of 25mg) once daily. Please follow-up with cardiology and primary care doctor. Pending Studies at Discharge: No Stand-Alone Forms: My [facility] SaveUp, Smoking Cessation Medications and DC Order Prescriptions: New metoprolol succinate 25 mg Tablet Extended Release 24 Hr 12.5 mg PO QAM Qty: 30 0RF Continued dutasteride 0.5 mg capsule 0.5 mg PO DAILY Qty: 90 3RF tamsulosin 0.4 mg capsule 0.4 mg PO DAILY Qty: 90 3RF lisinopril 10 mg Tablet 10 mg PO QAM lansoprazole 15 mg Capsule,Delayed Release(Dr/Ec) 15 mg PO QAM Discharge Orders: Discharge Order (Routine); Ordered 01/03/22 Ordered By: Santiago Lazo/Other Patient Handouts: Diabetes: Meal Planning, Type 2 Diabetes Admission Data Admit Date/Time: 01/02/22 13:48 Attending Provider: Santiago Delgado Admit Provider: Carlito Vasquez Primary Care Provider: Broderick Hubbard Other Providers: Shakir Neri ; Carlito Vasquez Other Interventions: Discharge Summary Assessment (RN) Last Done: 01/03/22 13:40
--- NOTE | 2022-01-04 23:02 | Electrocardiogram Report ---
Test Reason : Blood Pressure : / mmHG Vent. Rate : 051 BPM Atrial Rate : 051 BPM P-R Int : 170 ms QRS Dur : 094 ms QT Int : 444 ms P-R-T Axes : 026 -27 007 degrees QTc Int : 409 ms Sinus bradycardia with marked sinus arrhythmia Otherwise normal ECG When compared with ECG of 02-JAN-2022 11:59, Sinus rhythm has replaced Atrial fibrillation Vent. rate has decreased BY 55 BPM Confirmed by Eric Bai ([id number]) on 01/04/2022 11:02:08 PM Referred By: REFERRED SELF Confirmed By:Eric Bai
== END 2022-01-03 14:21 | disposition home or self-care (01) | DRG 309 ==
LOC: ED 11:52 → 4W 13:48 → SUATTDRO 13:48 → 4W 14:58